=== PATIENT | female | born 1950 | race Caucasian/White ===

== ENCOUNTER 2019-04-02 10:36 | Inpatient (IN) | payer MEDICARE, OTHER ==
[2019-04-02] MEDS ORDERED: Fentanyl 20 mcg/ml (100 ml CADD) IV PRN (10:53)
[2019-04-02] MEDS ORDERED: methylPREDNISolone Sod Succ/PF 125 MG/2 ML VIAL ONE (10:58)
[2019-04-02] MEDS ORDERED: Magnesium 2 GM/50 ML BAG (IN WATER) ONE (10:58)
--- NOTE | 2019-04-02 10:59 | RAD ---
XR Chest 1 View Portable History: Chest pain. Comparison: None. Findings: Patient is intubated with endotracheal tube tip above the yvette 4 cm. Lungs are hyperinfla robert. Scarring throughout the lungs. Calcified breast implants. Calcified granuloma right upper lobe. Enteric tube side port below the GE junction. Impression: 1. Satisfactory position of the endotracheal and enteric tubes. 2. Lung hyperinflation and scarring suggestive of obstructive pulmonary disease.
[2019-04-02 11:01] LABS: Actual Bicarbonate (HCO3a) 25.4 mEq/L (22-28); Analyzer IN Cardio ER; Base Excess (BEa) -1.8 mEq/L (-2.0 to +3.0); CO2 Tension 52.6 mmHg (35.0-45.0); Calcium, Ionized 1.16 mmol/L (1.12-1.30); Carboxyhemoglobin (COHb) 1.1 gm% (0.0-3.0); Hemoglobin (Hb) 14.9 g/dL (12.0-16.0); O2 Tension (PaO2) 288.8 mmHg (> 80.0); Potassium - ABG Lab 3.53 mmol/L (3.70-5.30)
[2019-04-02 11:03] LABS: Puncture Site RRA
[2019-04-02] MEDS ORDERED: ISOVUE-370 76%-LOCM 1 ML ONE (11:09)
[2019-04-02 11:17] LABS: #Basophils 0.1 thou/uL (0.0-0.2); #Eosinphils 0.2 thou/uL (0.0-0.7); #Monocytes 0.6 thou/uL (0.11-0.59); #Neutrophils 3.7 thou/uL (1.40-6.50); %Basophils 1.2 % (0.0-1.0); %Eosinophils 2.9 % (0.0-10.0); %Lymphocytes 30.2 % (21.0-51.0); %Monocytes 9.6 % (0.0-10.0); %Neutrophils 56.1 % (42.0-75.0); Hemoglobin 14.3 g/dL (12.0-16.0); Mean Corpuscular HGB CONC 32.5 g/dL (32.0-36.0); Mean Corpuscular Hemoglobin 33.7 pg (27.0-31.0); Mean Platelet Volume 7.1 fL (7.4-10.4); Platelet Count 450 thou/uL (130-400); RBC Distribution Width 11.5 % (11.5-14.5); Red Blood Cell (RBC) Count 4.23 mill/uL (4.20-5.40); White Blood Cell (WBC) Count 6.5 thou/uL (4.8-10.8)
[2019-04-02 11:33] LABS: ALT (SGPT) 11 U/L (8-55); AST (SGOT) 16 U/L (5-34); Albumin 3.6 g/dL (3.4-4.8); Alkaline Phosphatase 92 U/L (40-150); Anion Gap 12 mmol/L (10-20); BUN (Urea Nitrogen) 9 mg/dL (9.8-20.1); Bilirubin, Total 0.3 mg/dL (0.2-1.2); Calc. Creatinine Clearance 0 mL/min (70-130); Calcium 9.1 mg/dL (7.8-10.44); Carbon Dioxide 24 mmol/L (23-31); Chloride 108 mmol/L (98-107); Estimated GFR-MDRD 60; Globulin 2.5 g/dL (2.4-3.5); Glucose 223 mg/dL (80-115); Potassium 3.7 mmol/L (3.5-5.1); Protein, Total 6.1 g/dL (6.0-8.3); Sodium 140 mmol/L (136-145)
[2019-04-02 11:49] LABS: Bacteria/HPF None Seen HPF (None Seen); Bilirubin Negative (Negative); Blood, Urine Negative (Negative); Clarity Turbid (Clear); Glucose, Urine (Dipstick) 30 mg/dL (Negative); Leukocyte Negative Leu/uL (Negative); Nitrite Negative (Negative); Protein, Urine (Dipstick) 70 mg/dL (Neg-Trace); RBC/HPF 0-3 HPF (0-3); Squamous Epithelial 0-3 HPF (0-3); Urobilinogen Normal mg/dL (Less than 2)
--- NOTE | 2019-04-02 11:57 | CT ---
CTA Angio Chest W WO Con History: Respiratory distress Comparison: Radiograph same day Findings: CT angiogram chest performed after the intravenous administration of contrast. 3-D renderin g provided. No proximal segmental pulmonary arterial filling defect. Pulmonary trunk size is normal. No pericardi al effusion. There is contrast within the renal collecting systems. Aortic size is nonaneurysmal. Dense calcifications along the breast implants bilaterally with likely left adnexa fracture rupture. Endotracheal tube tip is above the yvette. Enteric tube tip is in the gastric body. Severe emphysema. Scarring both lung apices. Calcified granuloma at superior segment right lower lobe . No pneumothorax. Chronic bronchial wall thickening. No airspace consolidation. No pneumothorax or effusion. Nonunion right posterior sixth, seventh, and eighth rib fractures. No thoracic spine compression defo rmity. Impression: 1. No proximal segmental pulmonary arterial filling defect. 2. Satisfactory location of the endotracheal and enteric tubes. 3. Severe pulmonary emphysema. 4. Nonunion right posterior sixth, seventh, and eighth rib fractures. 5. No evidence for pneumonia.
[2019-04-02 12:09] LABS: CKMB 5.5 ng/mL (0-6.6)
[2019-04-02] MEDS ORDERED: Acetaminophen 650 MG Suppository PR PRN (13:00)
--- NOTE | 2019-04-02 13:20 | PDOC.FPRHP ---
Addendum entered and electronically signed by Bernie Oneil MD 04/02/19 16:08 : VS: HR 76 bpm, RR 20 resp/min, BP 106/52, 95%O2 PE: Gen: NAD, intubated, sedated. Neuro: Responds to command. GCS 7T (E1V5M6) Heart: RRR, no murmurs or gallups Resp: Breath sounds present bilaterally, no wheezing, good respiratory effort Abd: Soft, nondistended, nontender Extremities/Skin: Purpura on back of hands, skin tears, no edema A/P: #Acute hypercapneic respiratory failure 2/2 COPD exacerbation -s/p ketamine & rocuronium & intubation -continue fentanyl, propofol for sedation due to agitation -pulmonary consulted, recs apprecatied -s/p magnesium. continue steroids, MANUEL duonebs, cefepime for abx coverage -apparently in ER patient writing to nurses that she wants to be extubated and stop all meds, however she received ketamine. Unethical to extubate at this time since possibility of decompensation and tatiana. since she could be having ketamine induced delirium/psychosis. Keep intubated with propofol for sedation to help with agitation -Once extubated, consider palliative care to discuss ADA #acute COPD exacerbation -no developing infiltrate suggestive of PNA on imaging, no WBC, neg procal, however cover with abx pending blood cx #Indeterminate troponins -.064, EKG with LBBB; no T wave inv/ST elevations however no prior EKG to compare -Likely demand however continue to trend #Skin excoriations/wounds -wound care #HTN -On home lisinopril, however need to med rec -PRNs for now #Hypothyroidism -Check TSH, not regularly followed by PCP #Hep C -Normal LFTs -Check HIV/RPR #Tobacco abuse -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 She was intubated at the time of evaluation, so the entirety of the HPI / ROS was obtained from the nursing staff and EMS. The patient apparently was experiencing SOB earlier this morning when she called EMS. Following EMS arrival, the patient initially refused treatment but was eventually convinced to try a trial of CPAP after the administration of IM/IV ketamine. The patient's RR and O2SATs continued to decline, and the decision was made to intubate the patient prior to transport. In the ED, the patient received methylprednisolone, magnesium and fentanyl and was placed on a respirator. A CXR, CTA, UA, and ABG were performed along with a CBC, CMP, Troponin and BNP. ED Course: While in the ED, the patient began communicating with nursing staff via handwritten notes that she wanted to be extubated and have all medication withheld. Due to obvious ethical concerns, the patient was informed that she was to remain intubated until she could be transferred to the ICU and her mental status could be assessed further. - Allergies/Adverse Reactions Allergies Allergy/AdvReac Type Severity Reaction Status Date / Time No Known Allergies Allergy Unverified 04/02/19 10:53 - History PMHx: COPD, Hepatitis C, HTN PSHx: Unknown FHx: Unknown Social: Tobacco Abuse, Drug / EtOH Abuse Unknown - Review of Systems ROS unobtainable: due to endotracheal tube - Vital signs BP: [156/92] HR: [88] RR: [20] Tmax: [-] Pox: [100]% on [Volume Support] Wt: [ 20 kg] - Physical Exam Constitutional: other -Constitutional: Intubated and moderately combative with hospital staff HEENT: normocephalic and atraumatic, PERRLA, EOMI, conjunctiva clear, no scleral icterus, grossly normal vision, grossly normal hearing, normal nasal mucosa Neck: supple, FROM, trachea midline, no LAD Chest: no-tender to palpation, no lesions Heart: RRR, normal S1/S2, no murmurs/rubs/gallops, pulses present, no edema Lungs: CTAB, no wheezing, other (Poor air movement) Abdomen: soft, non-tender, no masses/distention Musculoskeletal: normal structure, normal tone, ROM grossly normal Neurological: no focal deficit, CN II-XII intact Skin: good turgor, other (Multiple skin breaks, petechia and ecchymoses on all 4 extremities) Heme/Lymphatic: other (See Skin) Psychiatric: other (Difficult to adequately assess due to current medication regimen and desire to be extubated) FMR H&P: Results - Labs Result Diagrams: 04/02/19 15:32 04/02/19 15:33 Lab results: WBC 6.5 thou/uL (4.8-10.8) 04/02/19 10:50 Hgb 14.3 g/dL (12.0-16.0) 04/02/19 10:50 Hct 43.9 % (36.0-47.0) 04/02/19 10:50 MCV 104.0 fL (78.0-98.0) H 04/02/19 10:50 Plt Count 450 thou/uL (130-400) H 04/02/19 10:50 Neutrophils % 56.1 % (42.0-75.0) 04/02/19 10:50 ABG pH 7.30 (7.35-7.45) L 04/02/19 10:56 ABG pCO2 52.6 mmHg (35.0-45.0) H 04/02/19 10:56 ABG pO2 288.8 mmHg (> 80.0) H 04/02/19 10:56 Sodium 140 mmol/L (136-145) 04/02/19 10:50 Potassium 3.7 mmol/L (3.5-5.1) 04/02/19 10:50 Chloride 108 mmol/L (98-107) H 04/02/19 10:50 Carbon Dioxide 24 mmol/L (23-31) 04/02/19 10:50 BUN 9 mg/dL (9.8-20.1) L 04/02/19 10:50 Creatinine 0.93 mg/dL (0.6-1.1) 04/02/19 10:50 Glucose 223 mg/dL (80-115) H 04/02/19 10:50 Lactic Acid 1.7 mmol/L (0.5-2.2) 04/02/19 10:50 Calcium 9.1 mg/dL (7.8-10.44) 04/02/19 10:50 Total Bilirubin 0.3 mg/dL (0.2-1.2) 04/02/19 10:50 AST 16 U/L (5-34) 04/02/19 10:50 ALT 11 U/L (8-55) 04/02/19 10:50 Alkaline Phosphatase 92 U/L (40-150) 04/02/19 10:50 CK-MB (CK-2) 5.5 ng/mL (0-6.6) 04/02/19 10:50 B-Natriuretic Peptide 115.6 pg/mL (0-100) H 04/02/19 10:50 Serum Total Protein 6.1 g/dL (6.0-8.3) 04/02/19 10:50 Albumin 3.6 g/dL (3.4-4.8) 04/02/19 10:50 Urine Ketones Negative mg/dL (Negative) 04/02/19 11:20 Urine Blood Negative (Negative) 04/02/19 11:20 Urine Nitrite Negative (Negative) 04/02/19 11:20 Ur Leukocyte Esterase Negative Inez/uL (Negative) 04/02/19 11:20 Urine RBC 0-3 HPF (0-3) 04/02/19 11:20 Urine WBC 7-10 HPF (0-3) A 04/02/19 11:20 Ur Squamous Epith Cells 0-3 HPF (0-3) 04/02/19 11:20 Urine Bacteria None Seen HPF (None Seen) 04/02/19 11:20 - EKG Interpretation EKG: RBBB - Radiology Interpretation Chest x-ray Status: image reviewed by me (NAF) CT scan - chest Status: image reviewed by me, report reviewed by me (Severe Pulmonary Emphysema) FMR H&P: A/P - Problem List (1) Acute hypercapnic respiratory failure Current Visit: Yes Status: Acute Code(s): J96.02 - ACUTE RESPIRATORY FAILURE WITH HYPERCAPNIA (2) COPD exacerbation Current Visit: Yes Status: Acute Code(s): J44.1 - CHRONIC OBSTRUCTIVE PULMONARY DISEASE W (ACUTE) EXACERBATION (3) HTN (hypertension) Current Visit: Yes Status: Acute Code(s): I10 - ESSENTIAL (PRIMARY) HYPERTENSION (4) Hepatitis C Current Visit: Yes Status: Acute Code(s): B19.20 - UNSPECIFIED VIRAL HEPATITIS C WITHOUT HEPATIC COMA (5) Tobacco abuse Current Visit: Yes Status: Acute Code(s): Z72.0 - TOBACCO USE - Plan 1. Acute Hypercapnic Respiratory Failure, likely 2/2 to COPD Exacerbation -Respiratory distress first witnessed by EMS, intubated following failed treatment of CPAP -IM ketamine administered in field by EMS -Placed on ventilator in ED - Volume Control -Rate: 20 -% Minute Volume: 7.5 -Inspired O2: 55 -Tidal Volume: 390 -Peak Pressure: 23 -Pressure Support: 10 -PEEP: 5 -CTA: Severe Pulmonary Emphysema -CXR: NAF -UA: +++WBCs, ++Amorphous Crystals, Hyaline Casts -Procalcitonin: 0.04 -Troponin: 0.064 (I) -BNP: 115 -UDS: Negative -Acute intoxication and/or infection appear unlikely -Patient expressed a desire to be extubated and have all medications withheld while in the ED -Mental status cannot be adequately assessed due to prior administration of IM ketamine -Patient unlikely to support respiratory needs unassisted -Dr. Velarde (Pulmonology) consulted - continued ventilator support recommended -Methylprednisolone 50 mg IV Q4H, Ipratropium/Albuterol 3 ml Neb Q4H -Transfer to ICU for close monitoring and ventilator support -Coordinate with Pulmonology in order to reassess mental status and establish plan of care 2. COPD Exacerbation -See #1 3. HTN -Most recent BP was 156/92 -Acceptable given comorbidities and unclear mental state 4. Hepatitis C -Etiology of infection and treatment status unknown -Withhold testing and intervention until mental status is reassessed and plan of care can be established with patient 5. Tobacco Abuse -Likely chronic -Encourage tobacco cessation if plan of care can be established with patient Code: Full Diet: NPO Activity: Strict Bed Rest DVT Prophylaxis: SCDs and Enoxaparin 40 mg SC Dispo: Admit to ICU and coordinate closely with Pulmonology for further evaluation and trial extubation. Alter plan as desired once mental status can be fully assessed and patient's wishes can be honored. FMR H&P: Upper Level - Pertinent history 68 yo F with severe emphysema brought in by EMS after picked up for severe dyspnea. Was found to be in tripod position and agitated. CPAP initially started in which she did not tolerate and so was given ketamine and rocuronium and intubated on the field. In the ER she was transitioned to fentanyl for pain/ sedation and was stabilized. Limited history is known since this is patient's first hospitalization and no family member present. - Plan Date/Time: 04/02/19 1320 I, [Bernie Oneil], have evaluated this patient and agree with findings/plan as outlined by project management intern resident. Pertinent changes/additions are listed here. Addendum - Attending - Attending Attestation Date/Time: 04/02/19 0964 I personally evaluated the patient and discussed the management with Dr. Gonsalez /Thad. I agree with the History, Examination, Assessment and Plan documented above with any addition or exceptions noted below. Patient is 68-year-old female with overall unknown medical history presenting to the emergency department via EMS. History obtained from nursing staff as well as EMS records. In brief, patient apparently called EMS due to increased shortness of breath. She was initially tried on CPAP therapy but quickly failed that and had to be intubated in the field. She was transferred here for higher level of care. Other historical information is unknown. Per EMS records, patient received ketamine by EMS and was transitioned to [facility] on arrival here. After arrival, she was somewhat awake and began writing notes asking to stop all medications as well as removing the endotracheal tube. Patients exam is pertinent for an elderly appearing lady in no apparent distress but currently on a ventilator for respiratory support. Her lung exam shows scattered wheezes and decreased air entry bilaterally. The rest of her exam was overall benign. Labs only showed a mild thrombocytosis and hyperglycemia. Chest x-ray was clear and chest CTA showed no pulmonary embolism but changes consistent with severe emphysema. Pulmonology was quickly consulted who assisted in evaluation of the patient. Due to the patients ventilator requirement, her arterial blood gas readings while on the ventilator, and the fact she had been given multiple medications that can result in changes in mental status, the decision was made that the patient was currently not capable of making the decision to withdraw care. During this evaluation, I was able to obtain the patients PCP name, who was contacted for further information. The patients physician reported that she had only seen her one time, in June 2018, and that she had no information regarding advance directives on the patient. She did have an emergency contact in her medical records and that number was contacted here today and was found to be disconnected number. After pulmonologys evaluation, patient was agreeable to remaining on the ventilator as it was described to her that her currently being off respiratory support was not compatible with long-term survival. The patient will be admitted to the CCU for respiratory support for acute hypoxic respiratory failure secondary to likely COPD exacerbation. Based on her PCPs records, the patient also has hypertension, hypothyroidism, chronic hepatitis C, in those conditions will be continued to be managed while in the hospital. Once patient is off the ventilator, we will be able to fully assess her future wishes and goals of care. Guillermo Moore MD
[2019-04-02] MEDS ORDERED: Lactated Ringer's 1,000 ML IV SCH (13:30)
[2019-04-02] MEDS ORDERED: Enoxaparin Sodium 40 MG/0.4 ML SYRINGE SC SCH (13:30)
[2019-04-02] MEDS ORDERED: Propofol 1,000 MG/100 ML VIAL IV ONE (14:36)
[2019-04-02] MEDS ORDERED: Ventilator Sedation Protocol 1 EACH FS SCH (14:45)
[2019-04-02] MEDS ORDERED: fentaNYL Citrate/PF 2,000 MCG in Sodium Chloride 0.9% 60 ML IV SCH (14:47)
[2019-04-02] MEDS ORDERED: Morphine 2 MG/ML SYRINGE SLOW IVP PRN (14:47)
[2019-04-02] MEDS ORDERED: Propofol 1,000 MG/100 ML VIAL IV PRN (14:47)
[2019-04-02] MEDS ORDERED: DISCONTINUE PREVIOUS NARCOTIC PAIN MEDICATIONS AND BENZODIAZEPINES FS SCH (14:47)
[2019-04-02] MEDS ORDERED: Propofol BOLUS 1,000 MG/100 ML VIAL IV PRN (14:47)
[2019-04-02] MEDS ORDERED: Fentanyl BOLUS 250 ML IVPB PRN (14:47)
[2019-04-02 14:53] VITALS: BMI 19.5
[2019-04-02 14:53] LABS: Amphetamine Not Detected (NotDetected); Barbiturates Screen Not Detected (NotDetected); Benzodiazepine Screen Not Detected (NotDetected); Cocaine Metabolite Screen Not Detected (NotDetected); Medtox Control Line Valid? VALID (VALID); Medtox Reader # READER 4; Methadone Not Detected (NotDetected); Methamphetamine Not Detected (NotDetected); Opiate Screen Not Detected (NotDetected); Oxycodone Screen Not Detected (NotDetected); Phencyclidine (PCP) Not Detected (NotDetected); THC/Cannabinoid Screen Not Detected (NotDetected); Tricyclic Screen Not Detected (NotDetected)
[2019-04-02] MEDS: Sodium Chloride 0.9% 1,000 ML IV SCH ×2 (15:24→18:23)
[2019-04-02] MEDS: Lorazepam 2 MG/ML VIAL SLOW IVP PRN ×2 (15:27→23:08)
[2019-04-02] MEDS: Cefepime 1 GM in Sodium Chloride 0.9% 100 ML IVPB SCH (15:28)
[2019-04-02 15:42] LABS: Hemoglobin 13.4 g/dL (12.0-16.0); Mean Corpuscular HGB CONC 32.9 g/dL (32.0-36.0); Mean Corpuscular Hemoglobin 33.7 pg (27.0-31.0); RBC Distribution Width 11.4 % (11.5-14.5); Red Blood Cell (RBC) Count 3.97 mill/uL (4.20-5.40); White Blood Cell (WBC) Count 14.4 thou/uL (4.8-10.8)
[2019-04-02 15:54] LABS: Band 14 % (5-11); Lymphocytes 4 % (21-51); MDiff Complete? YES; Macrocytosis SLIGHT = 6-15 cells (100X) (0-5/hpf); Monocytes 1 % (0-10); Neutrophil 81 % (42-75); Platelet Count 290 thou/uL (130-400); Platelet Morphology Comment Appears Adequate
[2019-04-02 16:07] LABS: Troponin I 0.712 ng/mL (< 0.028)
[2019-04-02 16:22] LABS: ALT (SGPT) 10 U/L (8-55); AST (SGOT) 21 U/L (5-34); Albumin 3.2 g/dL (3.4-4.8); Alkaline Phosphatase 82 U/L (40-150); Anion Gap 18 mmol/L (10-20); BUN (Urea Nitrogen) 9 mg/dL (9.8-20.1); Bilirubin, Total 0.3 mg/dL (0.2-1.2); Calc. Creatinine Clearance 47 mL/min (70-130); Calcium 8.9 mg/dL (7.8-10.44); Carbon Dioxide 16 mmol/L (23-31); Chloride 109 mmol/L (98-107); Estimated GFR-MDRD 60; Globulin 2.5 g/dL (2.4-3.5); Glucose 218 mg/dL (80-115); Potassium 4.6 mmol/L (3.5-5.1); Protein, Total 5.7 g/dL (6.0-8.3); Sodium 138 mmol/L (136-145)
[2019-04-02] MEDS ORDERED: Sodium Chloride 0.9% 500 ML IV SCH (16:30)
[2019-04-02] MEDS: methylPREDNISolone Sod Succ/PF 125 MG/2 ML VIAL IVP SCH (17:01)
[2019-04-02 17:49] LABS: HIV (1/2) Antibody/Antigen Non-Reactive (NonReactive); HIV 1/2 INDEX 0.07 S/CO (<1.00); Syphilis Antibody Nonreactive (Nonreactive); Syphilis Antibody Index 0.05 S/CO (<1.00 Non-Reactive); Thyroid Stimulating Hormone 0.1197 uIU/mL (0.35-4.94)
[2019-04-02 18:55] LABS: Troponin I 1.386 ng/mL (< 0.028)
[2019-04-02] MEDS: Famotidine/PF 20 mg/2ml Vial SLOW IVP SCH (21:29)
[2019-04-02 22:22] LABS: CKMB 12.7 ng/mL (0-6.6)
[2019-04-02] MEDS ORDERED: Enoxaparin Sodium 60 MG/0.6 ML SYRINGE SC SCH (22:45)
[2019-04-03] MEDS: methylPREDNISolone Sod Succ/PF 125 MG/2 ML VIAL IVP SCH ×4 (00:34→17:15)
[2019-04-03 01:46] LABS: Critical Call Chem Troponin I RESULT DECREASING
[2019-04-03 02:13] LABS: CKMB 14.4 ng/mL (0-6.6)
[2019-04-03] MEDS: Sodium Chloride 0.9% 1,000 ML IV SCH ×2 (04:16→15:20)
[2019-04-03] MEDS: Cefepime 1 GM in Sodium Chloride 0.9% 100 ML IVPB SCH (04:16)
[2019-04-03 06:29] LABS: #Lymphocytes 0.9 thou/uL (1.20-3.40); #Monocytes 0.4 thou/uL (0.11-0.59); #Neutrophils 9.5 thou/uL (1.40-6.50); %Lymphocytes 8.3 % (21.0-51.0); %Monocytes 3.2 % (0.0-10.0); %Neutrophils 88.4 % (42.0-75.0); Hemoglobin 12.7 g/dL (12.0-16.0); Mean Platelet Volume 7.4 fL (7.4-10.4); Platelet Count 364 thou/uL (130-400); RBC Distribution Width 11.6 % (11.5-14.5); Red Blood Cell (RBC) Count 3.74 mill/uL (4.20-5.40); White Blood Cell (WBC) Count 10.7 thou/uL (4.8-10.8)
[2019-04-03 06:50] LABS: Anion Gap 11 mmol/L (10-20); BUN (Urea Nitrogen) 11 mg/dL (9.8-20.1); Calc. Creatinine Clearance 59 mL/min (70-130); Calcium 8.6 mg/dL (7.8-10.44); Carbon Dioxide 20 mmol/L (23-31); Chloride 112 mmol/L (98-107); Estimated GFR-MDRD 79; Glucose 170 mg/dL (80-115); Potassium 3.9 mmol/L (3.5-5.1); Sodium 139 mmol/L (136-145)
[2019-04-03 07:01] LABS: Critical Call Chem Troponin I RESULT DECREASING
[2019-04-03 07:19] LABS: CKMB 13.2 ng/mL (0-6.6); Critical Call CKMB RESULT DECREASING
[2019-04-03] MEDS: Famotidine/PF 20 mg/2ml Vial SLOW IVP SCH ×2 (07:30→20:49)
[2019-04-03] MEDS: Enoxaparin Sodium 60 MG/0.6 ML SYRINGE SC SCH ×2 (07:30→20:48)
--- NOTE | 2019-04-03 07:34 | PDOC.FM ---
- Subjective Subjective: Elevated troponins, started on therapeutic lovenox. NAEO otherwise - Objective Vital Signs & Weight: Vital Signs (12 hours) Temp Pulse Resp BP 04/03/19 07:24 89 04/03/19 06:00 20 04/03/19 04:00 98.4 F 04/03/19 02:26 68 105/69 04/03/19 02:00 20 04/03/19 00:00 98.0 F 04/02/19 22:33 61 82/57 L 04/02/19 22:00 20 04/02/19 20:00 20 Weight Weight 50.2 kg Most Recent Monitor Data Heart Rate from ECG 80 NIBP 115/72 NIBP BP-Mean 86 Respiration from ECG 20 SpO2 99 I&O: 04/02/19 04/03/19 04/04/19 06:59 06:59 06:59 Intake Total 2745.5 Output Total 570 Balance 2175.5 Result Diagrams: 04/03/19 06:08 04/03/19 06:08 Phys Exam - Physical Examination Constitutional: NAD intubated/sedated HEENT: moist MMs Respiratory: no wheezing, clear to auscultation bilateral Cardiovascular: RRR, no significant murmur Gastrointestinal: soft, non-tender Musculoskeletal: no edema, pulses present Neurological: non-focal, moves all 4 limbs Dx/Plan (1) NSTEMI (non-ST elevated myocardial infarction) Code(s): I21.4 - NON-ST ELEVATION (NSTEMI) MYOCARDIAL INFARCTION Status: Acute (2) Acute hypercapnic respiratory failure Code(s): J96.02 - ACUTE RESPIRATORY FAILURE WITH HYPERCAPNIA Status: Acute (3) COPD exacerbation Code(s): J44.1 - CHRONIC OBSTRUCTIVE PULMONARY DISEASE W (ACUTE) EXACERBATION Status: Acute (4) HTN (hypertension) Code(s): I10 - ESSENTIAL (PRIMARY) HYPERTENSION Status: Acute (5) Hepatitis C Code(s): B19.20 - UNSPECIFIED VIRAL HEPATITIS C WITHOUT HEPATIC COMA Status: Acute (6) Tobacco abuse Code(s): Z72.0 - TOBACCO USE Status: Acute - Plan Plan: 68 yo F with severe COPD, NSTEMI here for acute hypercapenic resp failure #Acute hypercapneic respiratory failure 2/2 COPD exacerbation -continue fentanyl, propofol for sedation due to agitation -s/p magnesium. continue steroids, MANUEL duonebs, cefepime for abx coverage -anticipated extubation today, pending clinical course & pulm recs-much appreciated #acute COPD exacerbation -no developing infiltrate suggestive of PNA on imaging, no WBC, neg procal -CXR this AM with no infiltrate -d/c abx #NSTEMI -likely demand in light of downtrending trops -EKG with LBBB; no T wave inv/ST elevations however no prior EKG to compare -prior EKG and NST in 2006 WNL -trop downtrending -th. 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 lovenox gi ppx: pepcid Will discuss with Dr. Salgado Addendum - Attending - Attending Attestation Date/Time: 04/03/19 3299 I personally evaluated the patient and discussed the management with Dr. Oneil. I agree with the History, Examination, Assessment and Plan documented above with any addition or exceptions noted below.
[2019-04-03 07:38] LABS: Actual Bicarbonate (HCO3a) 18.9 mEq/L (22-28); Base Excess (BEa) -5.6 mEq/L (-2.0 to +3.0); CO2 Tension 33.8 mmHg (35.0-45.0); Calcium, Ionized 1.21 mmol/L (1.12-1.30); Carboxyhemoglobin (COHb) 0.9 gm% (0.0-3.0); Hemoglobin (Hb) 12.6 g/dL (12.0-16.0); Potassium - ABG Lab 3.84 mmol/L (3.70-5.30); pH, Arterial 7.37 (7.35-7.45)
[2019-04-03 07:43] LABS: Puncture Site RRA
--- NOTE | 2019-04-03 08:16 | CON ---
DATE OF CONSULTATION: HISTORY OF PRESENT ILLNESS: Gail Maldonado is a 68-year-old female, who has seen Dr. Michael in our office, presented with marked respiratory distress requiring intubation in the field. She was in the ER for a period of time, several hours, with associated ongoing respiratory distress. She became lucid enough and said she wanted to have endotracheal tube removed and wanted to be made a DNR. At about 3 o'clock, we talked to the patient that if she took the tube out, she would probably proceed to . She says she that is what she wanted. I finally convinced her that she was going to get better if we treated her for 24 to 48 hours. She has received, I am told in the ER, ketamine, one dose of rocuronium and apparently Fentanyl, at least at the time of my arrival, she is any medication. PAST MEDICAL HISTORY: COPD, hepatitis C, hypertension. SOCIAL HISTORY: She is still smoking. PAST SURGICAL HISTORY: Previous surgeries otherwise unknown. MEDICATIONS: Home medicine at this stage difficult to assess. REVIEW OF SYSTEMS: Otherwise, she was appropriate when I told her we would transfer her to the ICU and keep her sedated overnight. PHYSICAL EXAMINATION: GENERAL: In the ICU, sedated on Diprivan. VITAL SIGNS: Pulse 76, blood pressure 106/52, respiratory rate 18. CHEST: Decreased breath sounds. Prolonged expiration. No wheezing. CARDIAC: Sinus tach. ABDOMEN: Soft. LABORATORY DATA: White count 14,000, H and H 13 and 40, platelet count is normal. Lytes are normal. PO2 is 288, pC02 52, pH 7.3 on a 390 tidal volume, pressure about 10, PEEP of 5. Lytes were normal. Glucose slightly elevated. BNP was normal. Chest x-ray, no acute infiltrates. Drug screen was negative. CT chest angio shows no PE, evidence of no infiltrates. IMPRESSION: Chronic obstructive pulmonary disease exacerbation, bronchitis, major anxiety, apparently hepatitis. PLAN: Antibiotics, neb treatments, steroids initiated. IV fluid hydration. We will notify Dr. Michael in the morning. This is a 45-minute critical care time. Job ID: [id number]
--- NOTE | 2019-04-03 08:51 | RAD ---
PORTABLE CHEST: Date: 04/03/19 HISTORY: CCU follow-up. On ventilator. COMPARISON: 04/02/19. FINDINGS: ET tube and NG tube unchanged. Lungs appear clear of infiltrate. Vascular markings normal. Heart size normal. IMPRESSION: No acute findings. No interval change. POS: OFF
--- NOTE | 2019-04-03 18:08 | EKG ---
Test Reason : Blood Pressure : / mmHG Vent. Rate : 076 BPM Atrial Rate : 076 BPM P-R Int : 142 ms QRS Dur : 124 ms QT Int : 476 ms P-R-T Axes : 088 006 202 degrees QTc Int : 535 ms Normal sinus rhythm Septal infarct , age undetermined T wave abnormality, consider inferolateral ischemia lbbb pattern Abnormal ECG No previous ECGs available Confirmed by DR. Tamiko CHAPARRO (3) on 04/03/2019 6:07:32 PM Referred By: LACEY Confirmed By:DR. Tamiko CHAPARRO
--- NOTE | 2019-04-03 18:08 | EKG ---
Test Reason : STAT Blood Pressure : / mmHG Vent. Rate : 088 BPM Atrial Rate : 088 BPM P-R Int : 136 ms QRS Dur : 114 ms QT Int : 458 ms P-R-T Axes : 079 -38 232 degrees QTc Int : 554 ms Normal sinus rhythm Left axis deviation Septal infarct (cited on or before 02-APR-2019) T wave abnormality, consider inferior ischemia T wave abnormality, consider anterolateral ischemia Prolonged QT Abnormal ECG When compared with ECG of 02-APR-2019 16:51, (Unconfirmed) QRS axis Shifted left T wave inversion more evident in Anterior leads Confirmed by DR. Tamiko CHAPARRO (3) on 04/03/2019 6:07:59 PM Referred By: Confirmed By:DR. Tamiko CHAPARRO
--- NOTE | 2019-04-03 18:28 | PRG ---
DATE OF SERVICE: 04/03/2019 SUBJECTIVE: Gail Maldonado remains mechanically ventilated this morning. She is placed on Precedex. A spontaneous breathing trial was initiated. My feeling this morning was that if she did well with spontaneous breathing trial, we would extubate her. Her expiratory time was very short and I felt confident that she would eventually extubate later in the morning. She has been extubated. OBJECTIVE: LUNGS: Clear this morning. HEART: Regular rhythm. ABDOMEN: Soft. VITAL SIGNS: Stable overnight. LABORATORY DATA: White count 10.7, hemoglobin 12.7, platelets 364. Electrolytes; sodium 139, potassium 3.9, chloride 112, bicarb 20, BUN 11, and creatinine 0.74. IMPRESSION: Advanced chronic obstructive pulmonary disease with a brief overnight intubation after presenting with respiratory failure. Hopefully, we can move her out of the Critical Care Unit in the morning. CRITICAL CARE TIME: 30 minutes. Job ID: [id number]
[2019-04-04] MEDS: methylPREDNISolone Sod Succ/PF 125 MG/2 ML VIAL IVP SCH ×2 (00:20→06:16)
[2019-04-04] MEDS: hydrALAZINE 20 MG/ML VIAL SLOW IVP PRN ×2 (01:29→23:13)
[2019-04-04] MEDS: Sodium Chloride 0.9% 1,000 ML IV SCH ×3 (01:30→21:54)
[2019-04-04] MEDS ORDERED: Mometasone/Formoterol 120 PUFF INHALER INH SCH (07:15)
[2019-04-04] MEDS: ALPRAZolam 0.25 MG TAB PO PRN ×4 (07:38→20:59)
--- NOTE | 2019-04-04 07:56 | PDOC.FM ---
- Subjective Subjective: patient very anxious, refusing AM labs. breathing treatments make anxious, wants medication breathing difficult, coughing - Objective MAR Reviewed: Yes Vital Signs & Weight: Vital Signs (12 hours) Temp Pulse Resp BP Pulse Ox 04/04/19 07:40 97 26 H 100 04/04/19 03:00 98.3 F 04/04/19 02:30 72 22 H 97 04/04/19 01:29 56 L 190/81 H 04/04/19 00:00 97.7 F 100 04/03/19 22:31 52 L 20 99 04/03/19 20:00 98.6 F 98 Weight Admit Weight 50.2 kg Weight 50.2 kg Most Recent Monitor Data Heart Rate from ECG 60 NIBP 149/69 NIBP BP-Mean 95 Respiration from ECG 23 SpO2 95 I&O: 04/03/19 04/04/19 04/05/19 06:59 06:59 06:59 Intake Total 2745.5 2501.4 Output Total 570 600 Balance 2175.5 1901.4 Result Diagrams: 04/03/19 06:08 04/03/19 06:08 Phys Exam - Physical Examination Constitutional: NAD dry mucosal membranes Neck: full ROM Respiratory: no wheezing, no rales, no rhonchi dec breath sounds Cardiovascular: RRR, no significant murmur Gastrointestinal: soft, non-tender Musculoskeletal: no edema Neurological: non-focal, moves all 4 limbs Deviation from normal: anxious affect Dx/Plan (1) NSTEMI (non-ST elevated myocardial infarction) Code(s): I21.4 - NON-ST ELEVATION (NSTEMI) MYOCARDIAL INFARCTION Status: Acute (2) Acute hypercapnic respiratory failure Code(s): J96.02 - ACUTE RESPIRATORY FAILURE WITH HYPERCAPNIA Status: Acute (3) COPD exacerbation Code(s): J44.1 - CHRONIC OBSTRUCTIVE PULMONARY DISEASE W (ACUTE) EXACERBATION Status: Acute (4) HTN (hypertension) Code(s): I10 - ESSENTIAL (PRIMARY) HYPERTENSION Status: Acute (5) Hepatitis C Code(s): B19.20 - UNSPECIFIED VIRAL HEPATITIS C WITHOUT HEPATIC COMA Status: Acute (6) Tobacco abuse Code(s): Z72.0 - TOBACCO USE Status: Acute (7) Anxiety Code(s): F41.9 - ANXIETY DISORDER, UNSPECIFIED Status: Acute - Plan Plan: 68 yo F with severe COPD, NSTEMI here for acute hypercapenic resp failure #Acute hypercapneic respiratory failure 2/2 COPD exacerbation/Anxiety -post extubation day 1, on 2-3L N.C., keep in ICU possible may decompensate and need re-intubation -starting dulera today, cont. MAUNEL duonebs & steroids -anxiety large component of respiratory issues -pulm on board, recs apprecaited -palliative care consulted to discuss ADA #acute COPD exacerbation -no developing infiltrate suggestive of PNA on imaging, no WBC, neg procal-abx not indicated -see above #NSTEMI, type 2 -likely demand in light of downtrending trops, no chest pain -EKG with LBBB; no T wave inv/ST elevations however no prior EKG to compare -prior EKG and NST in 2006 WNL -trop downtrending -th. lovenox, ASA -cards on board, recs appreciated #Anxiety -started on xanax QID since contributing to respiatory issues #Skin excoriations/wounds -wound care consulted #HTN -resume home lisinopril #Hypothyroidism -check tsh/ft4 #Hep C -Normal LFTs -HIV/RPR negative #Tobacco abuse -Manager Advanced cessation Dispo: >2 midnights PCP: Dr Levi Sheffield Lines: left AC, right AC, ETT dvt ppx: th. lovenox gi ppx: none Code: DNR Will discuss with Dr. Salgado Addendum - Attending - Attending Attestation Date/Time: 04/04/19 9558 I personally evaluated the patient and discussed the management with Dr. Oneil. I agree with the History, Examination, Assessment and Plan documented above with any addition or exceptions noted below. Will continue to treat anxiety as a trigger for COPD exacerbation.
[2019-04-04] MEDS ORDERED: Famotidine 20 MG TAB PO SCH (09:00)
[2019-04-04] MEDS: Loratadine 10 MG TAB PO SCH (09:08)
[2019-04-04] MEDS: Lisinopril 10 MG TAB PO SCH (09:08)
[2019-04-04] MEDS: Enoxaparin Sodium 40 MG/0.4 ML SYRINGE SC SCH (09:09)
[2019-04-04] MEDS: methylPREDNISolone Sod Succ 40 MG VIAL IVP SCH ×3 (12:07→23:24)
[2019-04-04 14:24] LABS: Anion Gap 13 mmol/L (10-20); BUN (Urea Nitrogen) 11 mg/dL (9.8-20.1); Calc. Creatinine Clearance 60 mL/min (70-130); Calcium 9.2 mg/dL (7.8-10.44); Carbon Dioxide 21 mmol/L (23-31); Chloride 110 mmol/L (98-107); Estimated GFR-MDRD 80; Glucose 112 mg/dL (80-115); Potassium 3.9 mmol/L (3.5-5.1); Sodium 140 mmol/L (136-145)
[2019-04-04 14:41] LABS: Band 5 % (5-11); Eosinophils 1 % (0-10); Hemoglobin 13.2 g/dL (12.0-16.0); Lymphocytes 2 % (21-51); MDiff Complete? YES; Mean Corpuscular HGB CONC 32.5 g/dL (32.0-36.0); Mean Corpuscular Hemoglobin 33.6 pg (27.0-31.0); Mean Platelet Volume 7.1 fL (7.4-10.4); Monocytes 2 % (0-10); Neutrophil 90 % (42-75); Platelet Count 427 thou/uL (130-400); Platelet Morphology Comment Appears Increased; RBC Distribution Width 11.7 % (11.5-14.5); Red Blood Cell (RBC) Count 3.94 mill/uL (4.20-5.40); White Blood Cell (WBC) Count 24.7 thou/uL (4.8-10.8)
[2019-04-04] MEDS: Acetaminophen 325 MG TAB PO PRN ×2 (15:14→20:59)
[2019-04-04 15:29] LABS: Hep C IgG Ab Reflex HepC Qnt (NonReactive); Hep C Index 11.63 S/CO (0-0.79)
[2019-04-04] MEDS ORDERED: niCARdipine 25 MG in Sodium Chloride 0.9% 250 ML 250 ML IVPB SCH (15:45)
[2019-04-04] MEDS: Mometasone/Formoterol 120 PUFF INHALER INH SCH (18:46)
[2019-04-05] MEDS: Diltiazem HCl 125 MG, Admixture Fee 1 EACH in Sodium Chloride 0.9% 100 ML IVPB SCH ×2 (00:21→08:48)
[2019-04-05] MEDS: ALPRAZolam 0.25 MG TAB PO PRN ×4 (02:44→19:52)
[2019-04-05] MEDS: Lorazepam 2 MG/ML VIAL SLOW IVP PRN ×3 (03:37→23:58)
[2019-04-05] MEDS: methylPREDNISolone Sod Succ 40 MG VIAL IVP SCH ×4 (05:41→23:54)
--- NOTE | 2019-04-05 07:05 | PDOC.FM ---
Addendum entered and electronically signed by Bernie Oneil MD 04/05/19 09:55 : Patient went in SVT overnight Started on cardizem drip Continue Original Note: - Subjective Subjective: NAEO. patient still anxious and agitated. - Objective Vital Signs & Weight: Vital Signs (12 hours) Temp Pulse Resp BP Pulse Ox 04/05/19 04:00 98.7 F 04/05/19 02:02 157 H 24 H 98 04/05/19 00:19 160 H 199/88 H 04/05/19 00:00 98.3 F 04/04/19 23:13 101 H 199/88 H 04/04/19 22:55 86 32 H 100 04/04/19 20:00 98.7 F 04/04/19 19:05 100 Weight Admit Weight 50.2 kg Weight 50.2 kg Most Recent Monitor Data Heart Rate from ECG 87 NIBP 175/89 NIBP BP-Mean 117 Respiration from ECG 24 SpO2 98 I&O: 04/04/19 04/05/19 04/06/19 06:59 06:59 06:59 Intake Total 2501.4 2402 Output Total 600 2903 Balance 1901.4 -501 Result Diagrams: 04/05/19 06:51 04/05/19 06:51 Dx/Plan (1) NSTEMI (non-ST elevated myocardial infarction) Code(s): I21.4 - NON-ST ELEVATION (NSTEMI) MYOCARDIAL INFARCTION Status: Acute (2) Acute hypercapnic respiratory failure Code(s): J96.02 - ACUTE RESPIRATORY FAILURE WITH HYPERCAPNIA Status: Acute (3) COPD exacerbation Code(s): J44.1 - CHRONIC OBSTRUCTIVE PULMONARY DISEASE W (ACUTE) EXACERBATION Status: Acute (4) HTN (hypertension) Code(s): I10 - ESSENTIAL (PRIMARY) HYPERTENSION Status: Acute (5) Hepatitis C Code(s): B19.20 - UNSPECIFIED VIRAL HEPATITIS C WITHOUT HEPATIC COMA Status: Acute (6) Tobacco abuse Code(s): Z72.0 - TOBACCO USE Status: Acute (7) Anxiety Code(s): F41.9 - ANXIETY DISORDER, UNSPECIFIED Status: Acute - Plan Plan: 68 yo F with severe COPD, NSTEMI here for acute hypercapenic resp failure #Acute hypercapneic respiratory failure 2/2 COPD exacerbation/Anxiety -post extubation day 1, on 2-3L N.C., keep in ICU possible may decompensate and need re-intubation -starting dulera today, cont. MANUEL duonebs & steroids -anxiety large component of respiratory issues, on xanax -pulm on board, recs appreciated -palliative care consulted to discuss ADA -can probably transfer to floor -oxygen qualifying trial #acute COPD exacerbation -no developing infiltrate suggestive of PNA on imaging, no WBC, neg procal-abx not indicated -see above #NSTEMI, type 2 -likely demand in light of downtrending trops, no chest pain -EKG with LBBB; no T wave inv/ST elevations however no prior EKG to compare -prior EKG and NST in 2006 WNL -trop downtrending -ASA -cards on board, recs appreciated #Anxiety -started on xanax QID since contributing to respiratory issues -discussed watermelon inspector SSRI, pt interested in discussing at later point #Skin excoriations/wounds -wound care consulted #HTN, uncontrolled -likely anxiety induced -will discuss inc in home lisinopril dose #Hypothyroidism -subclinical hypoT -resume home synthroid -monitor & adjust outpt #Hep C -Normal LFTs -HIV/RPR negative -pending hep C viral panel #Tobacco abuse -Student Loan Counselor cessation Dispo: >2 midnights PCP: Dr Levi Sheffield Lines: left AC, right AC dvt ppx: ppx lovenox gi ppx: home protonix Code: DNR Will discuss with Dr. Salgado Addendum - Attending - Attending Attestation Date/Time: 04/05/19 1201 I personally evaluated the patient and discussed the management with Dr. Oneil. I agree with the History, Examination, Assessment and Plan documented above with any addition or exceptions noted below. Gail is making slow improvement. I agree that anxiety is liely exascerbating hre known COPD. I think she would benefit from SSRI or other non benzodiazepine based medication in addition to the xanax, but she remains resistant to any therapy other than benzo class. We appreciate pulmonology care and expertise.
[2019-04-05 07:09] LABS: #Lymphocytes 1.1 thou/uL (1.20-3.40); #Monocytes 1.9 thou/uL (0.11-0.59); #Neutrophils 15.9 thou/uL (1.40-6.50); %Basophils 0.2 % (0.0-1.0); %Eosinophils 0.1 % (0.0-10.0); %Lymphocytes 5.7 % (21.0-51.0); %Monocytes 10.1 % (0.0-10.0); Hemoglobin 12.4 g/dL (12.0-16.0); Mean Corpuscular HGB CONC 32.8 g/dL (32.0-36.0); Mean Corpuscular Hemoglobin 33.4 pg (27.0-31.0); Mean Platelet Volume 7.1 fL (7.4-10.4); Platelet Count 396 thou/uL (130-400); RBC Distribution Width 11.7 % (11.5-14.5); Red Blood Cell (RBC) Count 3.72 mill/uL (4.20-5.40)
[2019-04-05] MEDS: Mometasone/Formoterol 120 PUFF INHALER INH SCH ×2 (07:17→18:26)
[2019-04-05 07:40] LABS: Anion Gap 11 mmol/L (10-20); BUN (Urea Nitrogen) 9 mg/dL (9.8-20.1); Calc. Creatinine Clearance 63 mL/min (70-130); Carbon Dioxide 23 mmol/L (23-31); Chloride 110 mmol/L (98-107); Cholesterol 225 mg/dl (< 200 Desired); Estimated GFR-MDRD 84; Glucose 104 mg/dL (80-115); HDL Cholesterol 75 mg/dL (>60 Neg Risk); LDL Cholesterol, Calculated 125 mg/dL; Potassium 3.3 mmol/L (3.5-5.1); Sodium 141 mmol/L (136-145); Triglycerides 126 mg/dL (Less than 150)
[2019-04-05] MEDS: Sodium Chloride 0.9% 1,000 ML IV SCH ×2 (08:07→19:49)
[2019-04-05] MEDS: Lisinopril 10 MG TAB PO SCH (08:08)
[2019-04-05] MEDS: Loratadine 10 MG TAB PO SCH (08:08)
[2019-04-05] MEDS ORDERED: guaiFENesin/Dextromethorphan 10 ML UDCUP PO PRN (08:16)
[2019-04-05] MEDS ORDERED: Magnesium 2 GM/50 ML 2 GM in Premix Bag 1 BAG IVPB SCH ×2 (08:30→09:15)
[2019-04-05] MEDS: Enoxaparin Sodium 40 MG/0.4 ML SYRINGE SC SCH (08:50)
--- NOTE | 2019-04-05 09:17 | PRG ---
DATE OF SERVICE: 04/05/2019 SUBJECTIVE: Gail Maldonado remains in the ICU, extremely anxious. Last night, she went into SVT, started on a Cardizem drip. OBJECTIVE: VITAL SIGNS: Pulse is 86, blood pressure 123/78, saturations are 98% on 2 L, and respirations 25. I's and O's have been consistently positive. CHEST: Decreased breath sounds. Prolonged expiration. CARDIAC: SVT. ABDOMEN: Soft. LABORATORY DATA: Potassium 3.3. Lytes are normal. White count 19,000, H and H of 10 and 37. ASSESSMENT: 1. End-stage chronic obstructive pulmonary disease exacerbation. 2. Do not resuscitate. 3. Supraventricular tachycardia. 4. Major anxiety. PLAN: Zee p.r.n. Continue Cardizem. Continue steroids, magnesium, antitussive medication. We will follow. One-half hour of critical care time. Job ID: [id number]
[2019-04-05] MEDS ORDERED: Lisinopril 10 MG TAB PO SCH (10:00)
[2019-04-05] MEDS ORDERED: Potassium Chloride 20 MEQ TAB PO SCH (10:00)
[2019-04-05] MEDS: Acetaminophen 325 MG TAB PO PRN ×2 (10:54→17:14)
[2019-04-05] MEDS: guaiFENesin/Dextromethorphan 10 ML UDCUP PO PRN ×2 (11:00→17:16)
[2019-04-05] MEDS: Labetalol HCl 100 MG/20 ML VIAL SLOW IVP PRN (14:10)
--- NOTE | 2019-04-05 16:19 | CON ---
DATE OF CONSULTATION: REASON FOR CONSULTATION: Non Q-wave AR. HISTORY OF PRESENT ILLNESS: Ms. Maldonado is a 68-year-old woman, who has been seen and evaluated by Cardiology in [facility]. She has advanced COPD and tobacco abuse. She recently presented with shortness of breath. She states she normally has shortness of breath that response to Symbicort. This episode it did not. She then proceeded to the emergency room with the above. Troponins were drawn and were elevated. The patient denied chest pain, pressure, neck or jaw discomfort. No other associated ameliorating or exacerbating factors present. PAST MEDICAL HISTORY: Subclavian steal syndrome, severe PVD, severe COPD, hepatitis C, hypertension, continued tobacco abuse. HOME MEDICATIONS: Ellipta, Protonix, lisinopril, Zyrtec, Synthroid, and Symbicort. SOCIAL HISTORY: As above. REVIEW OF SYSTEMS: A 10-point review of systems is reviewed as above, otherwise negative. PHYSICAL EXAMINATION: GENERAL: Patient is a pleasant female, who is in no acute distress. She does appear older than stated age. She is seen sitting up. She states she is not able to lie supine. VITAL SIGNS: Blood pressure 166/85, pulse 80, respirations 20. NEUROLOGIC: The patient is alert and oriented x3 with no focal neurologic deficits. HEENT: Sclerae without icterus. Mouth has moist mucous membranes with normal pallor. NECK: No JVD. Carotid upstroke brisk. No bruits bilaterally. LUNGS: Clear to auscultation with unlabored respirations. BACK: No scoliosis or kyphosis. CARDIAC: Regular rate and rhythm with normal S1 and S2. No S3 or S4 noted. No significant rubs, murmurs, thrills, or gallops noted throughout the precordium. PMI is not displaced. There is no parasternal heave. ABDOMEN: Soft, nontender, nondistended. No peritoneal signs present. No hepatosplenomegaly. No abnormal striae. EXTREMITIES: 2+ femoral and 2+ dorsalis pedis pulses. No cyanosis, clubbing, or edema. SKIN: No gross abnormalities. LABORATORY DATA: Pertinent lab; peak CK-MB of 14.4 on 04/03/2019. Troponin 1.2. EKG shows normal sinus rhythm with left bundle-branch block. Echo Doppler very difficult to assess. Parasternal view is not well seen. Overall, LVEF does appear normal in the apical views. IMPRESSION: 1. Elevated troponin. 2. Advanced chronic obstructive pulmonary disease. 3. Severe PVD. 4. Subclavian steal syndrome. 5. Continued tobacco abuse. 6. DNR. RECOMMENDATIONS: At this point, her elevated troponin likely secondary to type 2 AR from demand ischemia and hypoxia. At this point, the patient has opted for continued medical therapy. We would agree. She is not able to lie flat, which would make a more aggressive approach difficult. She was intubated in the emergency room and is opted to be extubated. She no longer wants to be intubated. At this point, add aspirin. Continue Lovenox in addition to lisinopril. Avoid beta nicola therapy. Continue conservative therapy. We will follow. Job ID: [id number]
--- NOTE | 2019-04-05 16:52 | EKG ---
Test Reason : STAT Blood Pressure : / mmHG Vent. Rate : 119 BPM Atrial Rate : 163 BPM P-R Int : 132 ms QRS Dur : 114 ms QT Int : 362 ms P-R-T Axes : 093 -19 179 degrees QTc Int : 509 ms Sinus tachycardia with frequent PAC's in bigeminal pattern Incomplete right bundle branch block Anteroseptal infarct (cited on or before 02-APR-2019) Abnormal ECG When compared with ECG of 02-APR-2019 22:43, Premature ventricular complexes are now Present Serial changes of Anteroseptal infarct Present Confirmed by DR. Tamiko CHAPARRO ([id number]) on 04/05/2019 4:52:24 PM Referred By: Confirmed By:DR. Tamiko CHAPARRO
[2019-04-05] MEDS: hydrALAZINE 20 MG/ML VIAL SLOW IVP PRN (17:16)
[2019-04-05] MEDS: Budesonide 0.5 MG/2 ML NEB INH SCH (18:25)
[2019-04-06] MEDS: Sodium Chloride 0.9% 1,000 ML IV SCH (05:09)
[2019-04-06] MEDS: methylPREDNISolone Sod Succ 40 MG VIAL IVP SCH (05:09)
[2019-04-06] MEDS: Labetalol HCl 100 MG/20 ML VIAL SLOW IVP PRN ×2 (05:10→08:02)
[2019-04-06 05:31] LABS: Anion Gap 11 mmol/L (10-20); BUN (Urea Nitrogen) 9 mg/dL (9.8-20.1); Calc. Creatinine Clearance 65 mL/min (70-130); Calcium 8.8 mg/dL (7.8-10.44); Carbon Dioxide 25 mmol/L (23-31); Chloride 107 mmol/L (98-107); Estimated GFR-MDRD 88; Glucose 139 mg/dL (80-115); Potassium 3.8 mmol/L (3.5-5.1); Sodium 139 mmol/L (136-145)
--- NOTE | 2019-04-06 06:08 | PDOC.FM ---
- Subjective Subjective: Gail Maldonado seen at bedside this morning. She has no complaints. Her BPs have remained elevated since being in the ICU. She is getting BP checks from thigh cough and pt's nurse state that she is constantly been moving around during vital checks. She is also tachypneic which has happened when she is sitting up and a little agitated. She got ativan once early last night but has not received any xanax yet today, which is what normal improves her tachypnea. She has had no desats and she denies any respiratory distress or difficulty breathing. She remains on the cardizem gtt after being in SVT starting morning of 04/05. Denies fever, chills, chest pain, n/v/abd pain. - Objective MAR Reviewed: Yes Vital Signs & Weight: Vital Signs (12 hours) Temp Pulse Resp BP Pulse Ox 04/06/19 05:10 83 215/112 H 04/06/19 04:00 98.9 F 04/06/19 00:00 98.0 F 04/05/19 21:42 70 20 04/05/19 20:00 97.8 F 96 04/05/19 18:26 72 24 H 100 04/05/19 18:25 72 24 H 100 Weight Admit Weight 50.2 kg Weight 50.2 kg Most Recent Monitor Data Heart Rate from ECG 59 NIBP 172/63 NIBP BP-Mean 99 Respiration from ECG 34 SpO2 95 I&O: 04/04/19 04/05/19 04/06/19 06:59 06:59 06:59 Intake Total 2501.4 2402 3136 Output Total 600 2903 1800 Balance 1901.4 -501 1336 Result Diagrams: 04/06/19 05:09 04/06/19 05:09 Phys Exam - Physical Examination Constitutional: NAD HEENT: moist MMs, sclera anicteric Neck: no JVD, supple diffuse rhonchi, decreased air movement Cardiovascular: RRR, no significant murmur Gastrointestinal: soft, non-tender, no distention, positive bowel sounds Musculoskeletal: no edema, pulses present Neurological: non-focal, normal sensation, moves all 4 limbs Psychiatric: normal affect, A&O x 3 Skin: cap refill <2 seconds Dx/Plan (1) Acute hypercapnic respiratory failure Code(s): J96.02 - ACUTE RESPIRATORY FAILURE WITH HYPERCAPNIA Status: Acute (2) Anxiety Code(s): F41.9 - ANXIETY DISORDER, UNSPECIFIED Status: Chronic (3) COPD exacerbation Code(s): J44.1 - CHRONIC OBSTRUCTIVE PULMONARY DISEASE W (ACUTE) EXACERBATION Status: Acute (4) HTN (hypertension) Code(s): I10 - ESSENTIAL (PRIMARY) HYPERTENSION Status: Chronic (5) Hepatitis C Code(s): B19.20 - UNSPECIFIED VIRAL HEPATITIS C WITHOUT HEPATIC COMA Status: Chronic (6) NSTEMI (non-ST elevated myocardial infarction) Code(s): I21.4 - NON-ST ELEVATION (NSTEMI) MYOCARDIAL INFARCTION Status: Acute (7) Tobacco abuse Code(s): Z72.0 - TOBACCO USE Status: Acute - Plan Plan: 68 yo F with severe COPD, NSTEMI here for acute hypercapenic resp failure #Acute hypercapneic respiratory failure 2/2 COPD exacerbation/Anxiety -post extubation day 2, on RA, no desats overnight, keep in ICU possible may decompensate and need re-intubation -started dulera 04/05, cont. MANUEL duonebs & steroids -anxiety large component of respiratory issues, on xanax QID, prn ativan -pulm on board, recs appreciated -palliative care consulted to discuss ADA -can probably transfer to floor today -oxygen qualifying trial #acute COPD exacerbation -no developing infiltrate suggestive of PNA on imaging, no WBC, neg procal-abx not indicated -see above #NSTEMI, type 2 -likely demand in light of downtrending trops, no chest pain -EKG with LBBB; no T wave inv/ST elevations however no prior EKG to compare -prior EKG and NST in 2006 WNL -trop downtrending -ASA -cards on board-recommended medical management, recs appreciated #Anxiety -started on xanax QID since contributing to respiratory issues -discussed dry ice maker SSRI, pt interested in discussing at later point #Skin excoriations/wounds -wound care consulted #HTN, uncontrolled -likely anxiety induced -will discuss inc in home lisinopril dose #Hypothyroidism -subclinical hypoT -resume home synthroid -monitor & adjust outpt #Hep C -Normal LFTs -HIV/RPR negative -pending hep C viral panel #Tobacco abuse -Director Of Hotel cessation Dispo: >2 midnights PCP: Dr Levi Sheffield Lines: left AC, right AC dvt ppx: ppx lovenox gi ppx: home protonix Code: DNR Will discuss with Dr. Lyle Addendum - Attending - Attending Attestation Date/Time: 04/06/192010 I personally evaluated the patient and discussed the management with Dr. Amador I agree with the History, Examination, Assessment and Plan documented above with any addition or exceptions noted below.
[2019-04-06 07:00] LABS: Band 5 % (5-11); Hemoglobin 12.8 g/dL (12.0-16.0); Lymphocytes 3 % (21-51); MDiff Complete? YES; Mean Corpuscular HGB CONC 32.1 g/dL (32.0-36.0); Mean Corpuscular Hemoglobin 32.2 pg (27.0-31.0); Mean Platelet Volume 7.1 fL (7.4-10.4); Monocytes 3 % (0-10); Neutrophil 89 % (42-75); Platelet Count 373 thou/uL (130-400); RBC Distribution Width 11.8 % (11.5-14.5); Red Blood Cell (RBC) Count 3.97 mill/uL (4.20-5.40); White Blood Cell (WBC) Count 11.4 thou/uL (4.8-10.8)
[2019-04-06] MEDS: ALPRAZolam 0.25 MG TAB PO PRN ×2 (07:45→14:51)
[2019-04-06] MEDS: Enoxaparin Sodium 40 MG/0.4 ML SYRINGE SC SCH (07:55)
[2019-04-06] MEDS: Loratadine 10 MG TAB PO SCH (07:55)
[2019-04-06] MEDS: Budesonide 0.5 MG/2 ML NEB INH SCH ×2 (08:12→19:05)
[2019-04-06] MEDS: Mometasone/Formoterol 120 PUFF INHALER INH SCH ×2 (08:13→19:05)
[2019-04-06] MEDS ORDERED: Lisinopril 10 MG TAB PO SCH (09:00)
[2019-04-06] MEDS ORDERED: Lisinopril 20 MG TAB PO SCH (09:00)
[2019-04-06] MEDS ORDERED: Magnesium 2 GM/50 ML 2 GM in Premix Bag 1 BAG IVPB SCH (09:15)
[2019-04-06] MEDS ORDERED: Furosemide 20 MG/2 ML VIAL SLOW IVP SCH (09:15)
[2019-04-06] MEDS ORDERED: Potassium Chloride 20 MEQ TAB PO SCH (09:15)
--- NOTE | 2019-04-06 10:06 | PRG ---
DATE OF SERVICE: 04/06/2019 SERVICE: Pulmonary Medicine. INTERVAL HISTORY: The patient is doing poorly from respiratory standpoint. She is refusing all nebulized medications. Denies any current fevers or chills. She is coughing and bringing up some phlegm. She has a hard time expectorating it. Otherwise, she has no specific complaints. She would like to move a little bit more. She remains on IV fluids. She is tolerating some p.o. for the most part. She does not have much of an appetite because she said her food is dry. PHYSICAL EXAMINATION: VITAL SIGNS: Afebrile, pulse 83, blood pressure 215/112, respirations 25, and saturation 94%, currently on room air. GENERAL: The patient is awake and alert. She is using accessory muscles and has mild respiratory distress. HEENT: Normocephalic and atraumatic. Sclerae white. Conjunctivae pink. Oral mucosa is moist without lesions. LUNGS: Decreased air entry. There are extensive rhonchi and prolonged expiratory phase with polyphonic wheezing. Dependent crackles are also subtly present. HEART: Normal rate and regular. ABDOMEN: Soft, nontender, and nondistended. Bowel sounds are positive. MUSCULOSKELETAL: No cyanosis or clubbing. There is 1+ pitting in the bilateral lower extremities. NEUROLOGIC: Grossly nonfocal. LABORATORY DATA: WBC 11.4, hemoglobin 12.8, and platelets 373,000. Basic metabolic profile is completely unremarkable except for potassium of 3.8. Magnesium 1.9. Urine drug screen is unremarkable. Plasma alcohol level is negative. Blood cultures x2 are unremarkable. IMAGING STUDIES: Echocardiogram demonstrates no good views. There is some diastolic dysfunction present. Parasternal views could not be performed. ASSESSMENT: 1. Acute hypoxic and hypercapnic respiratory failure, resolving. 2. Chronic obstructive pulmonary disease with acute exacerbation. 3. Anxiety disorder. DISCUSSION AND PLAN: I am going to give her some more potassium and magnesium. IV fluids will be interrupted, we will give her small dose of Lasix because she is significantly positive for this hospital stay. We will get her into a chair 3 times daily with meals. Physical Therapy will be involved. We will increase our mobilization efforts through time as tolerated. She is requesting a walker. If this is appropriate, physical therapy may be able to provide her with one during this hospital stay. She is basically told me that she has full intentions of suing the ambulance service and/or the hospital for providing interventions that she specifically told them not to perform. I would certainly hate to be in a position similar to our EMS service as a healthcare provider that is watching someone struggle. Job ID: [id number] MTDD
[2019-04-06] MEDS: Lorazepam 2 MG/ML VIAL SLOW IVP PRN ×2 (10:36→23:40)
[2019-04-06] MEDS: hydrALAZINE 20 MG/ML VIAL SLOW IVP PRN (10:38)
[2019-04-06 11:09] LABS: Hep C PCR-Quant HCV Not Detected IU/mL (.)
--- NOTE | 2019-04-06 11:36 | PDOC.CPN ---
- Subjective Date: 04/06/19 Time: 14:40 Interval history: No changes Continues with SOB - Objective Allergies/Adverse Reactions: Allergies Allergy/AdvReac Type Severity Reaction Status Date / Time buspirone [From BuSpar] Allergy Intermediate Hives Verified 04/05/19 07:39 ondansetron [From Zofran] Allergy Intermediate Nausea Verified 04/05/19 07:39 Penicillins Allergy Intermediate Hives Verified 04/05/19 07:39 Sulfa (Sulfonamide Allergy Intermediate Severe Verified 04/05/19 07:39 Antibiotics) Hives Visit Medications: Current Medications Acetaminophen (Tylenol) 650 mg DE Q4H PRN PRN Reason: Headache/Fever/Mild Pain (1-3) Acetaminophen (Tylenol) 650 mg PO Q6H PRN PRN Reason: Headache/Fever or Pain Last Admin: 04/05/19 17:14 Dose: 650 mg Albuterol/Ipratropium (Duoneb) 3 ml NEB [id number] MANUEL Last Admin: 04/06/19 10:47 Dose: Not Given Alprazolam (Xanax) 0.25 mg PO QIDPRN PRN PRN Reason: Anxiety Last Admin: 04/05/19 19:52 Dose: 0.25 mg Budesonide (Pulmicort Neb Solution) 0.5 mg INH BID-RT MANUEL Last Admin: 04/06/19 08:12 Dose: Not Given Enoxaparin Sodium (Lovenox) 40 mg SC 0900 MANUEL Last Admin: 04/06/19 07:55 Dose: 40 mg Furosemide (Lasix) 20 mg SLOW IVP NOW MANUEL Stop: 04/06/19 12:00 Last Admin: 04/06/19 09:26 Dose: 20 mg Guaifenesin/Dextromethorphan (Robitussin Dm) 5 ml PO Q6H PRN PRN Reason: Cough Last Admin: 04/05/19 17:16 Dose: 5 ml Hydralazine HCl (Apresoline) 10 mg SLOW IVP Q4H PRN PRN Reason: systolic BP > 180 Last Admin: 04/06/19 10:38 Dose: 10 mg Diltiazem HCl 125 mg/Miscellaneous Medication 1 each/ Sodium Chloride 125 mls @ 5 mls/hr IVPB INF MANUEL; Protocol Last Admin: 04/05/19 08:48 Dose: 125 mls Magnesium Sulfate 2 gm/ Device 50 mls @ 100 mls/hr IVPB NOW [facility] Stop: 04/06/19 13:00 Last Admin: 04/06/19 10:07 Dose: 50 mls Labetalol HCl (Normodyne) 5 mg SLOW IVP Q4H PRN PRN Reason: SBP >180 AND HR >70 Last Admin: 04/06/19 08:02 Dose: 5 mg Levothyroxine Sodium (Synthroid) 75 mcg PO 0600 [facility] Lisinopril (Zestril) 10 mg PO DAILY [facility] Loratadine (Claritin) 10 mg PO DAILY [facility] Last Admin: 04/06/19 07:55 Dose: 10 mg Lorazepam (Ativan) 2 mg SLOW IVP Q2H PRN PRN Reason: Anxiety/Restlessness/Sleep Last Admin: 04/06/19 10:36 Dose: 2 mg Mometasone Furoate/Formoterol Fumar (Dulera 200 Mcg/5 Mcg Inhaler) 2 puff INH BID-RT [facility] Last Admin: 04/06/19 08:13 Dose: Not Given Discontinue Previous Narcotic Pain Medications And Benzodiazepines 1 each FS .ONE [facility] Stop: 05/02/19 14:47 Pantoprazole Sodium (Protonix) 40 mg PO DAILY [facility] Last Admin: 04/06/19 07:55 Dose: 40 mg Potassium Chloride (K-Dur) 40 meq PO NOW [facility] Stop: 04/06/19 12:00 Last Admin: 04/06/19 09:27 Dose: 40 meq Prednisone (Prednisone) 40 mg PO QAM-WM [facility] Stop: 04/10/19 08:01 Quetiapine Fumarate (Seroquel) 25 mg PO HS [facility] Last Admin: 04/05/19 19:53 Dose: Not Given Sodium Chloride (Flush - Normal Saline) 10 ml IVF PRN PRN PRN Reason: Saline Flush Vital Signs & Weight: Vital Signs Temp Pulse BP Pulse Ox 04/06/19 10:38 83 215/112 H 04/06/19 08:14 94 L 04/06/19 08:02 83 215/112 H 04/06/19 08:00 98.2 F 96 04/06/19 05:10 83 215/112 H 04/06/19 04:00 98.9 F 04/06/19 00:00 98.0 F Admit Weight 110 lb 10.753 oz Weight 110 lb 10.753 oz - Physical Exam General: cachectic Neck: supple neck, no lymphadenopathy Cardiac: regular rate and rhythm, no murmur Lungs: decreased breath sounds, bibasilar rales Abdomen: unremarkable (Pt not able to lie flat) - Labs Result Diagrams: 04/06/19 05:09 04/06/19 05:09 Troponin/CKMB CK-MB (CK-2) 13.2 ng/mL (0-6.6) H* 04/03/19 06:08 Troponin I 0.752 ng/mL (< 0.028) H* 04/03/19 06:08 - Assessment/Plan Assessment/Plan: Type 2 [place] Sefere COPD Contiues tobacco abuse PVD No new recommendations Spoke with DR. Michael today Pt not a candidate for any invasive treatment options at this time Continue with medical therapy Please reconsult of other questions arise
[2019-04-06] MEDS: Nicotine 14 MG PATCH TD SCH (15:00)
--- NOTE | 2019-04-06 15:07 | EKG ---
Test Reason : Blood Pressure : / mmHG Vent. Rate : 106 BPM Atrial Rate : 106 BPM P-R Int : 142 ms QRS Dur : 122 ms QT Int : 382 ms P-R-T Axes : 084 -60 098 degrees QTc Int : 507 ms Sinus tachycardia Possible Left atrial enlargement Left axis deviation Left bundle branch block Abnormal ECG Confirmed by RON GERMAIN DO ([id number]), assignment desk editor DAGO DIAZ ([id number]) on 04/06/2019 3:07:22 PM Referred By: Confirmed By:RON GERMAIN DO
[2019-04-07] MEDS: Lorazepam 2 MG/ML VIAL SLOW IVP PRN (02:25)
[2019-04-07] MEDS: Guaifenesin DM 100-10/5 ML UDCUP PO PRN ×2 (02:37→09:09)
[2019-04-07] MEDS ORDERED: Levothyroxine Sodium 75 MCG TAB PO SCH (06:00)
[2019-04-07] MEDS: Levothyroxine Sodium 75 MCG TAB PO SCH (06:33)
[2019-04-07] MEDS: Budesonide 0.5 MG/2 ML NEB INH SCH ×2 (06:34→19:04)
[2019-04-07] MEDS: Mometasone/Formoterol 120 PUFF INHALER INH SCH ×2 (06:35→19:20)
--- NOTE | 2019-04-07 07:29 | PDOC.FM ---
- Subjective Subjective: Gail Maldonado is seen at bedside this morning. She is doing well. States that she is feeling better from a respiratory standpoint but she still has been dealing with cough and occasional dyspnea, especially when she is anxious. She denies any fever, chills, chest pain, n/v, abdominal pain. There were no acute events overnight. - Objective MAR Reviewed: Yes Vital Signs & Weight: Vital Signs (12 hours) Temp Pulse Ox 04/07/19 06:36 94 L 04/07/19 04:00 97.8 F 04/07/19 00:00 97.6 F 04/06/19 20:00 97.6 F 96 Weight Admit Weight 50.2 kg Weight 50.2 kg Most Recent Monitor Data Heart Rate from ECG 58 NIBP 147/63 NIBP BP-Mean 91 Respiration from ECG 33 SpO2 94 I&O: 04/06/19 04/07/19 04/08/19 06:59 06:59 06:59 Intake Total 3136 762 Output Total 1999 2650 Balance 1136 -1888 Result Diagrams: 04/06/19 05:09 04/06/19 05:09 Phys Exam - Physical Examination Constitutional: NAD HEENT: moist MMs, sclera anicteric Neck: supple, full ROM diffuse rhonchi, prolonged expiratory phase Cardiovascular: RRR, no significant murmur Gastrointestinal: soft, non-tender, no distention Musculoskeletal: no edema, pulses present Neurological: non-focal, moves all 4 limbs Psychiatric: normal affect, A&O x 3 Skin: cap refill <2 seconds Dx/Plan (1) Acute hypercapnic respiratory failure Code(s): J96.02 - ACUTE RESPIRATORY FAILURE WITH HYPERCAPNIA Status: Acute (2) Anxiety Code(s): F41.9 - ANXIETY DISORDER, UNSPECIFIED Status: Chronic (3) COPD exacerbation Code(s): J44.1 - CHRONIC OBSTRUCTIVE PULMONARY DISEASE W (ACUTE) EXACERBATION Status: Acute (4) HTN (hypertension) Code(s): I10 - ESSENTIAL (PRIMARY) HYPERTENSION Status: Chronic (5) Hepatitis C Code(s): B19.20 - UNSPECIFIED VIRAL HEPATITIS C WITHOUT HEPATIC COMA Status: Chronic (6) NSTEMI (non-ST elevated myocardial infarction) Code(s): I21.4 - NON-ST ELEVATION (NSTEMI) MYOCARDIAL INFARCTION Status: Acute (7) Tobacco abuse Code(s): Z72.0 - TOBACCO USE Status: Acute - Plan Plan: 68 yo F with severe COPD, NSTEMI here for acute hypercapenic resp failure #Acute hypercapneic respiratory failure 2/2 COPD exacerbation/Anxiety: improving -post extubation day 3, on RA -started dulera 04/05, cont. MANUEL duonebs & steroids -anxiety large component of respiratory issues, on xanax QID, prn ativan -pulm on board, recs appreciated -palliative care consulted to discuss ADA -can probably transfer to floor today, depending on pulm recs #acute COPD exacerbation -no developing infiltrate suggestive of PNA on imaging, no WBC, neg procal-abx not indicated -see above #NSTEMI, type 2 -likely demand in light of downtrending trops, no chest pain -EKG with LBBB; no T wave inv/ST elevations however no prior EKG to compare -prior EKG and NST in 2006 WNL -trop downtrending -ASA -cards on board-recommended medical management, recs appreciated #Anxiety -started on xanax QID since contributing to respiratory issues -starting SSRI today -prn ativan #Skin excoriations/wounds -wound care consulted #HTN, uncontrolled -likely anxiety induced -will discuss inc in home lisinopril dose #Hypothyroidism -subclinical hypoT -resume home synthroid -monitor & adjust outpt #Hep C -Normal LFTs -HIV/RPR negative -pending hep C viral panel #Tobacco abuse -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 Amador I agree with the History, Examination, Assessment and Plan documented above with any addition or exceptions noted below. Patient's anxiety continue to be a significant barrier to her care.
[2019-04-07] MEDS: ALPRAZolam 0.25 MG TAB PO PRN ×2 (07:53→18:24)
[2019-04-07] MEDS: predniSONE 20 MG TAB PO SCH (07:53)
[2019-04-07] MEDS ORDERED: Lisinopril 10 MG TAB PO SCH (09:00)
[2019-04-07] MEDS: Loratadine 10 MG TAB PO SCH (09:02)
[2019-04-07] MEDS: Enoxaparin Sodium 40 MG/0.4 ML SYRINGE SC SCH (09:02)
[2019-04-07] MEDS: hydrALAZINE 20 MG/ML VIAL SLOW IVP PRN (10:57)
[2019-04-07] MEDS: Escitalopram Oxalate 10 mg Tablet PO SCH ×2 (11:54→12:02)
[2019-04-07] MEDS ORDERED: guaiFENesin ER 600 MG TAB PO SCH (12:00)
[2019-04-07] MEDS: Nicotine 14 MG PATCH TD SCH (14:08)
--- NOTE | 2019-04-07 14:56 | PRG ---
DATE OF SERVICE: 04/07/2019 SERVICE: Pulmonary Medicine. INTERVAL HISTORY: The patient is doing fine from respiratory standpoint. She is improved compared to when she came in, but not anywhere near baseline yet. She still has a little bit of dyspnea, and minimal accessory muscle use. That being said, she appears to be more conversational today. PHYSICAL EXAMINATION: VITAL SIGNS: Afebrile, pulse 68, blood pressure 186/97, respirations 23, and saturation 94% on room air. GENERAL: The patient is awake and alert, in no apparent distress. LUNGS: Very reduced air entry. There is a prolonged expiratory phase. Polyphonic wheezing is noted. That being said, she is really not moving enough air to hear other adventitious sounds. HEART: Normal rate, regular. ABDOMEN: Soft, nontender, and nondistended. Bowel sounds are positive. MUSCULOSKELETAL: No cyanosis or clubbing. No pitting in bilateral lower extremities. NEUROLOGIC: Grossly nonfocal. LABORATORY DATA: WBC 11.4, hemoglobin 12.8, and platelets 373,000. Blood cultures x2 are negative. ASSESSMENT: 1. Acute hypoxic and hypercapnic respiratory failure, resolved. 2. Chronic obstructive pulmonary disease with acute exacerbation. 3. Non-ST elevation myocardial infarction secondary to demand. 4. Anxiety disorder. DISCUSSION AND PLAN: I am going to schedule some Mucinex, though she is having a hard time liberating the sputum. She tells me she is refusing the DuoNeb because she gets choked up on her sputum and is afraid of them. As such, I am going to initiate MetaNeb medications to see if we can facilitate removal of these things. We will also give her an Acapella valve that she can use that can hopefully liberate some of the sputum. From my perspective, she is stable for transition out of the ICU to the medical unit. She is certainly not ready for transition home at this moment. Job ID: [id number] [facility]
[2019-04-07] MEDS ORDERED: Benzonatate 100 MG CAP PO SCH (15:00)
[2019-04-07] MEDS: guaiFENesin ER 600 MG TAB PO SCH (19:56)
[2019-04-08] MEDS: ALPRAZolam 0.25 MG TAB PO PRN ×2 (01:37→07:50)
[2019-04-08] MEDS: Budesonide 0.5 MG/2 ML NEB INH SCH ×2 (06:07→18:36)
[2019-04-08] MEDS: Levothyroxine Sodium 75 MCG TAB PO SCH (06:10)
--- NOTE | 2019-04-08 06:32 | PDOC.FM ---
- Subjective Subjective: NAEO. anxiety improved. able to walk to bathroom with walker. off of oxygen. denies chest pain - Objective MAR Reviewed: Yes Vital Signs & Weight: Vital Signs (12 hours) Temp Pulse Resp BP Pulse Ox 04/08/19 06:07 70 40 H 95 04/08/19 03:53 98.2 F 70 20 175/90 H 92 L 04/08/19 00:50 98.3 F 81 20 175/77 H 90 L 04/07/19 20:29 97.8 F 83 24 H 190/84 H 92 L 04/07/19 20:00 92 L 04/07/19 19:03 83 20 96 Weight Admit Weight 50.2 kg Weight 50.2 kg Most Recent Monitor Data Heart Rate from ECG 72 NIBP 170/83 NIBP BP-Mean 112 Respiration from ECG 22 SpO2 94 I&O: 04/06/19 04/07/19 04/08/19 06:59 06:59 06:59 Intake Total 3136 762 400 Output Total 1999 2650 200 Balance 1136 -1888 200 Result Diagrams: 04/06/19 05:09 04/06/19 05:09 Phys Exam - Physical Examination Constitutional: NAD cachectic appearing Neck: no nodes, no JVD Respiratory: no wheezing, no rales, no rhonchi dec respiratory sounds diffusely Cardiovascular: RRR, no significant murmur Gastrointestinal: soft, non-tender Musculoskeletal: no edema Neurological: non-focal, moves all 4 limbs Dx/Plan (1) NSTEMI (non-ST elevated myocardial infarction) Code(s): I21.4 - NON-ST ELEVATION (NSTEMI) MYOCARDIAL INFARCTION Status: Acute (2) Acute hypercapnic respiratory failure Code(s): J96.02 - ACUTE RESPIRATORY FAILURE WITH HYPERCAPNIA Status: Acute (3) COPD exacerbation Code(s): J44.1 - CHRONIC OBSTRUCTIVE PULMONARY DISEASE W (ACUTE) EXACERBATION Status: Acute (4) HTN (hypertension) Code(s): I10 - ESSENTIAL (PRIMARY) HYPERTENSION Status: Chronic (5) Hepatitis C Code(s): B19.20 - UNSPECIFIED VIRAL HEPATITIS C WITHOUT HEPATIC COMA Status: Chronic (6) Tobacco abuse Code(s): Z72.0 - TOBACCO USE Status: Acute (7) Anxiety Code(s): F41.9 - ANXIETY DISORDER, UNSPECIFIED Status: Chronic - Plan Plan: 68 yo F with severe COPD, NSTEMI here for acute hypercapenic resp failure #Acute hypercapneic respiratory failure 2/2 COPD exacerbation/Anxiety: improving -post extubation day 3, on RA -refusing duonebs. on pulmicort, MANUEL mucinex, dulera, prednisone, acapella valve. Pulm recs apprecaited -anxiety large component of respiratory issues, on xanax QID, prn ativan #Physical deconditioning -rehab screen, CM consulted #acute COPD exacerbation -no developing infiltrate suggestive of PNA on imaging, no WBC, neg procal-abx not indicated -see above #NSTEMI, type 2 -cards on board-medical management with ASA, lisinopril, avoid BB therapy -starting statin, ASCVD risk 25.6% #Anxiety -started on xanax QID since contributing to respiratory issues -started lexapro -prn ativan #Skin excoriations/wounds -wound care consulted #HTN, uncontrolled -likely anxiety induced but uncontrolled so will inc. 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 pulm on board, recs appreciated. Continue COPD meds. Improving slowly. 2) HTN- inc lisinopril dose. 3) Anxiety- improved, continue lexapro and ativan PRN. consider hydroxyzine PRN. 4) NSTEMI II- no CP. continue medical mgmt with ASA. Starting statin will discuss with Dr. William Addendum - Attending - Attending Attestation Date/Time: 04/08/192108 I personally evaluated the patient and discussed the management with Dr. Oneil at 0910 am. I agree with the History, Examination, Assessment and Plan documented above with any addition or exceptions noted below. Severe COPD- appreciate pulm recs. Work on rehab vs SNF placement. HTN- increase RONALD Inh.
[2019-04-08] MEDS: Mometasone/Formoterol 120 PUFF INHALER INH SCH ×2 (06:35→18:36)
[2019-04-08] MEDS: Lisinopril 20 MG TAB PO SCH (07:45)
[2019-04-08] MEDS: predniSONE 20 MG TAB PO SCH (07:45)
[2019-04-08] MEDS: guaiFENesin ER 600 MG TAB PO SCH ×2 (07:45→20:00)
[2019-04-08] MEDS: Escitalopram Oxalate 10 mg Tablet PO SCH (07:45)
[2019-04-08] MEDS: Benzonatate 100 MG CAP PO SCH ×3 (07:45→20:00)
[2019-04-08] MEDS: Enoxaparin Sodium 40 MG/0.4 ML SYRINGE SC SCH (07:46)
[2019-04-08] MEDS: Loratadine 10 MG TAB PO SCH (07:46)
--- NOTE | 2019-04-08 07:50 | PRG ---
DATE OF SERVICE: SUBJECTIVE: She never wants be be intubated again and is adamant about this. Lungs breath sounds are equal HEART: Regular rhythm. ABDOMEN: Soft. EXTREMITIES: no edema IMPRESSION AND PLAN: 1. Severe chronic obstructive pulmonary disease exacerbation, status post mechanical ventilation. 2. Hypertension off Cardene drip. 3. Severe anxiety, will likely benefit from xanax assisted Job ID: [id number] [facility]
[2019-04-08] MEDS: Lorazepam 2 MG/ML VIAL SLOW IVP PRN (11:33)
[2019-04-08] MEDS: Nicotine 14 MG PATCH TD SCH (14:51)
[2019-04-08] MEDS: ALPRAZolam 0.25 MG TAB PO SCH ×2 (14:54→20:01)
--- NOTE | 2019-04-08 16:40 | PRG ---
DATE OF SERVICE: 04/08/2019 Gail Maldonado did well over the weekend. She is less anxious than she was on Monday. She said the handful of pills she had to take this morning led to nausea, which made her not want to eat. She recognizes that she has to eat to maintain her strength, so we will simplify some of her medicines for now. She can probably do without her lipid drugs and hold her thyroid for a few days to make sure nausea goes away.She probably does need to stay on her RONALD inhibitor. The antihistamine probably ads very little given the steroid dosing that she is on. She does not want to take the Protonix as well, so this can be held for short period of time, if not indefinitely. We will continue with supportive care. I would think about discharge planning versus a skilled unit. Impression Advanced COPD Chronic respiratory failure I am ordering home noninvasive ventilation for night time use and prn. Traditional BIPAP will not be sufficient. Job ID: [id number] [facility]
[2019-04-08] MEDS ORDERED: Atorvastatin Calcium 40 MG TAB PO SCH (21:00)
[2019-04-09] MEDS: hydrALAZINE 20 MG/ML VIAL SLOW IVP PRN ×2 (04:09→06:01)
[2019-04-09] MEDS: ALPRAZolam 0.25 MG TAB PO SCH ×4 (04:18→23:08)
[2019-04-09] MEDS: Budesonide 0.5 MG/2 ML NEB INH SCH ×2 (06:43→19:05)
[2019-04-09] MEDS: Mometasone/Formoterol 120 PUFF INHALER INH SCH ×2 (06:48→19:06)
--- NOTE | 2019-04-09 06:59 | PDOC.FM ---
- Subjective Subjective: Breathing much improved, able to walk to bathroom with walker. Able to cough up mucus yesterday; feeling better. Looking forward to going to rehab. - Objective MAR Reviewed: Yes Vital Signs & Weight: Vital Signs (12 hours) Temp Pulse Resp BP BP BP Pulse Ox 04/09/19 06:43 71 18 95 04/09/19 06:27 188/66 H 04/09/19 06:01 61 203/63 H 04/09/19 03:52 97.9 F 66 16 195/96 H 92 L 04/08/19 23:46 98.6 F 72 16 157/61 H 92 L 04/08/19 20:00 93 L 04/08/19 19:33 98.0 F 78 22 H 164/71 H 93 L Weight Admit Weight 50.2 kg Weight 50.2 kg Most Recent Monitor Data Heart Rate from ECG 72 NIBP 170/83 NIBP BP-Mean 112 Respiration from ECG 22 SpO2 94 I&O: 04/07/19 04/08/19 04/09/19 06:59 06:59 06:59 Intake Total 508 949 0539 Output Total 2650 200 Balance -2242 312 7545 Result Diagrams: 04/06/19 05:09 04/06/19 05:09 Phys Exam - Physical Examination Constitutional: NAD less anxious HEENT: PERRLA, moist MMs Neck: no JVD improved breath sounds, no wheezing no prolonged expiration Cardiovascular: RRR, no significant murmur Gastrointestinal: soft, non-tender Neurological: non-focal, moves all 4 limbs Dx/Plan (1) NSTEMI (non-ST elevated myocardial infarction) Code(s): I21.4 - NON-ST ELEVATION (NSTEMI) MYOCARDIAL INFARCTION Status: Acute (2) Acute hypercapnic respiratory failure Code(s): J96.02 - ACUTE RESPIRATORY FAILURE WITH HYPERCAPNIA Status: Acute (3) COPD exacerbation Code(s): J44.1 - CHRONIC OBSTRUCTIVE PULMONARY DISEASE W (ACUTE) EXACERBATION Status: Acute (4) HTN (hypertension) Code(s): I10 - ESSENTIAL (PRIMARY) HYPERTENSION Status: Chronic (5) Hepatitis C Code(s): B19.20 - UNSPECIFIED VIRAL HEPATITIS C WITHOUT HEPATIC COMA Status: Chronic (6) Tobacco abuse Code(s): Z72.0 - TOBACCO USE Status: Acute (7) Anxiety Code(s): F41.9 - ANXIETY DISORDER, UNSPECIFIED Status: Chronic - Plan Plan: 68 yo F with severe COPD, NSTEMI here for acute hypercapenic resp failure #Acute hypercapneic respiratory failure 2/2 COPD exacerbation/Anxiety: improving -post extubation day 4, nonhypoxic on RA -refusing duonebs. on pulmicort, MANUEL mucinex, dulera, prednisone, acapella valve. Pt improved especially with breathing treaments. Pulm recs apprecaited -anxiety large component of respiratory issues, on xanax QID, prn ativan #Physical deconditioning -rehab screen, CM consulted -plan for intpt rehab #acute COPD exacerbation -no developing infiltrate suggestive of PNA on imaging, no WBC, neg procal-abx not indicated -see above #NSTEMI, type 2 -cards on board-medical management with ASA, lisinopril, avoid BB therapy -starting statin, ASCVD risk 25.6% #Anxiety -started on xanax QID since contributing to respiratory issues -started lexapro -prn ativan -will switch to longer acting benzo #Skin excoriations/wounds -wound care consulted #HTN, uncontrolled -likely anxiety induced but uncontrolled despite inc. 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 pulm on board, recs appreciated. Continue COPD meds. Improving slowly. 2) HTN- will add second antihypertensive. 3) Anxiety- improved, continue lexapro, MANUEL xanax and ativan PRN. will discuss switch to longer acting muna. 4) NSTEMI II- no CP. continue medical mgmt with ASA. Starting statin Dispo: Inpt rehab will discuss with Dr. William Addendum - Attending - Attending Attestation Date/Time: 04/09/192117 I personally evaluated the patient and discussed the management with Dr. Oneil I agree with the History, Examination, Assessment and Plan documented above with any addition or exceptions noted below. Severe COPD- improving and near baseline- continue steroid and nebs. Appreciate paula linares Anxiety- on lexapro and dacia zaldivar Working on placement in SNF for conditioning.
[2019-04-09] MEDS: guaiFENesin ER 600 MG TAB PO SCH ×2 (08:13→20:33)
[2019-04-09] MEDS: predniSONE 20 MG TAB PO SCH (08:13)
[2019-04-09] MEDS: Lisinopril 20 MG TAB PO SCH (08:13)
[2019-04-09] MEDS: Benzonatate 100 MG CAP PO SCH ×3 (08:13→20:33)
[2019-04-09] MEDS: Enoxaparin Sodium 40 MG/0.4 ML SYRINGE SC SCH (08:13)
[2019-04-09] MEDS: Escitalopram Oxalate 10 mg Tablet PO SCH (08:13)
[2019-04-09] MEDS ORDERED: Lisinopril 10 MG TAB PO SCH (11:40)
[2019-04-09] MEDS ORDERED: Lisinopril 10 MG TAB PO ONE (11:40)
[2019-04-09] MEDS ORDERED: Lisinopril 20 MG TAB PO SCH (11:45)
[2019-04-09] MEDS ORDERED: Polyethylene Glycol 3350 17 GM Packet PO PRN (14:58)
[2019-04-09] MEDS: Nicotine 14 MG PATCH TD SCH (16:16)
--- NOTE | 2019-04-09 16:29 | PRG ---
DATE OF SERVICE: 04/08/2019 SUBJECTIVE: Gail Maldonado continues to improve. She lives alone, so she is nervous about going to the house. She is willing to go to Skilled for some therapy. OBJECTIVE: VITAL SIGNS: She is afebrile. Heart rate 68, respiratory rate is 20, oximetry is 92% on room air, blood pressure is 180/76. LUNGS: Distant and clear. HEART: Regular rhythm. ABDOMEN: Soft. IMPRESSION: Chronic obstructive pulmonary disease exacerbation for the most part, resolved. She is stable to go to a Skilled unit. She is near her baseline from a Pulmonary standpoint. She could use a little better blood pressure control. We will change her nebulized treatments to q.4 hours while awake and discontinue the EzPAP. She will continue with mucolytics. Her Synthroid can be restarted at discharge. She really is complaining about all of her pills and probably should have her lisinopril restarted or another drug that she is willing to take. She is difficult from an anxiety perspective. She was treating her anxiety with her tobacco use and is no longer smoking. She might also benefit from increasing her dose of Seroquel at bedtime. Job ID: [id number] [facility]
--- NOTE | 2019-04-10 04:36 | PDOC.FM ---
- Subjective Subjective: She is doing better this morning. She is breathing well. She has not had a BM in 8 days. She says she feels week. She says she ate well yesterday. - Objective MAR Reviewed: Yes Vital Signs & Weight: Vital Signs (12 hours) Temp Pulse Resp BP Pulse Ox 04/10/19 00:00 98.3 F 71 20 177/74 H 95 04/09/19 20:00 94 L 04/09/19 19:36 98.1 F 74 22 H 176/65 H 94 L 04/09/19 19:04 62 04/09/19 18:00 98.3 F 62 20 165/74 H 93 L Weight Admit Weight 50.2 kg Weight 50.2 kg Most Recent Monitor Data Heart Rate from ECG 72 NIBP 170/83 NIBP BP-Mean 112 Respiration from ECG 22 SpO2 94 I&O: 04/08/19 04/09/19 04/10/19 06:59 06:59 06:59 Intake Total 400 1960 1500 Output Total 200 Balance 200 1960 1500 Result Diagrams: 04/06/19 05:09 04/06/19 05:09 Phys Exam - Physical Examination Constitutional: NAD HEENT: PERRLA, moist MMs Neck: supple, full ROM Respiratory: clear to auscultation bilateral (decreased breath sound most likely 2/2 hyperexpanded lungs) Cardiovascular: RRR, no significant murmur Gastrointestinal: soft, non-tender, positive bowel sounds Musculoskeletal: no edema, pulses present Neurological: moves all 4 limbs Psychiatric: A&O x 3 Deviation from normal: nervous affect Deviation from normal: significant bruising on arms and chest Dx/Plan (1) Acute hypercapnic respiratory failure Code(s): J96.02 - ACUTE RESPIRATORY FAILURE WITH HYPERCAPNIA Status: Acute (2) COPD exacerbation Code(s): J44.1 - CHRONIC OBSTRUCTIVE PULMONARY DISEASE W (ACUTE) EXACERBATION Status: Acute (3) NSTEMI (non-ST elevated myocardial infarction) Code(s): I21.4 - NON-ST ELEVATION (NSTEMI) MYOCARDIAL INFARCTION Status: Acute (4) Tobacco abuse Code(s): Z72.0 - TOBACCO USE Status: Acute (5) Anxiety Code(s): F41.9 - ANXIETY DISORDER, UNSPECIFIED Status: Chronic (6) HTN (hypertension) Code(s): I10 - ESSENTIAL (PRIMARY) HYPERTENSION Status: Chronic (7) Hepatitis C Code(s): B19.20 - UNSPECIFIED VIRAL HEPATITIS C WITHOUT HEPATIC COMA Status: Chronic - Plan Plan: 68 yo F with severe COPD, NSTEMI here for acute hypercapenic resp failure. 1. Acute hypercapneic respiratory failure 2/2 COPD exacerbation/Anxiety: improving * post extubation day 5, nonhypoxic on RA * Duonebs Q4H. on pulmicort, MANUEL mucinex, dulera (refused), prednisone, acapella valve. Pt improved especially with breathing treaments. Pulm recs apprecaited * anxiety large component of respiratory issues, on xanax QID 2. Physical deconditioning * rehab screen, CM consulted * plan for intpt rehab 3. acute COPD exacerbation * no developing infiltrate suggestive of PNA on imaging, no WBC, neg procal-abx not indicated * see above 4. NSTEMI, type 2 * cards on board-medical management with ASA, lisinopril, avoid BB therapy * starting statin, ASCVD risk 25.6% 5. Anxiety * started on xanax QID prn since contributing to respiratory issues * started lexapro * will switch to longer acting benzo 6. Skin excoriations/wounds * wound care consulted 7. HTN, uncontrolled * likely anxiety induced but uncontrolled despite inc. in lisinopril * will add second antihypertensive agent, PRNs to cover 8. Hypothyroidism * subclinical hypoT * resume home synthroid-held for now due to meds causing n/v 9. Hep C * Normal LFTs * HIV/RPR negative * hep c virla panel negative 10. 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 Currently pending placement.
[2019-04-10] MEDS: Mometasone/Formoterol 120 PUFF INHALER INH SCH (06:11)
[2019-04-10] MEDS: Benzonatate 100 MG CAP PO SCH ×2 (08:22→13:47)
[2019-04-10] MEDS: guaiFENesin ER 600 MG TAB PO SCH (08:22)
[2019-04-10] MEDS: Escitalopram Oxalate 10 mg Tablet PO SCH (08:22)
[2019-04-10] MEDS: predniSONE 20 MG TAB PO SCH (08:23)
[2019-04-10] MEDS: Enoxaparin Sodium 40 MG/0.4 ML SYRINGE SC SCH (08:23)
[2019-04-10] MEDS: ALPRAZolam 0.25 MG TAB PO SCH ×2 (08:23→13:47)
[2019-04-10] MEDS ORDERED: Lisinopril 20 MG TAB PO SCH ×2 (09:00)
[2019-04-10] MEDS ORDERED: Polyethylene Glycol 3350 17 GM Packet PO PRN (09:00)
[2019-04-10] MEDS: Budesonide 0.5 MG/2 ML NEB INH SCH (10:03)
[2019-04-10 11:23] VITALS: BP 132/66; TEMP 97.8
--- NOTE | 2019-04-10 12:00 | PRG ---
DATE OF SERVICE: 04/10/2019 Ms. Maldonado was recently admitted with a respiratory arrest secondary to COPD. She is doing much better and will be discharged to a intermediate facility for step-down therapy today. Job ID: [id number]
--- NOTE | 2019-04-10 12:56 | PRG ---
DATE OF SERVICE: 04/10/2019 OBJECTIVE: VITAL SIGNS: Ms. Maldonado is afebrile. Heart rate is 66, respiratory rate is 18, oximetry is 92% on room air, blood pressure is 132/66. LUNGS: Clear. IMPRESSION: 1. Chronic obstructive pulmonary disease exacerbation with respiratory failure requiring intubation. 2. Acute on chronic respiratory failure with hypoxemia and hypercarbia. Her hypoxemia has resolved. I do feel she would benefit from noninvasive ventilation at night to hopefully decrease frequency of hospitalizations and COPD exacerbations as well as her sensation of dyspnea when she wakes up in the morning. Her deconditioning is the biggest issue. We are awaiting placement in the skilled unit. She thinks now that the Lexapro she was taking was creating her nausea. Her blood pressure medications have been adjusted. Job ID: [id number]
[2019-04-10] MEDS: Nicotine 14 MG PATCH TD SCH (13:47)
--- NOTE | 2019-04-11 09:49 | DIS ---
DATE OF ADMISSION: 04/02/2019 DATE OF DISCHARGE: 04/10/2019 ADMITTING ATTENDING: Alexander Moore MD RESIDENT: Bernie Oneil MD, PGY-2 PRIMARY DIAGNOSES: 1. Acute hypercapnic respiratory failure secondary to chronic obstructive pulmonary disease exacerbation and anxiety. 2. Physical deconditioning. 3. Acute chronic obstructive pulmonary disease exacerbation. 4. Severe chronic obstructive pulmonary disease. 5. Type [address]-elevation myocardial infarction. 6. Anxiety. 7. Skin excoriation of the wound. 8. Hypertension. 9. Hypothyroidism. 10. History of hepatitis C. 11. Tobacco use. CONSULTS: Pulmonology, Vicente Michael MD DISCHARGE MEDICATIONS: 1. Protonix 40 mg p.o. daily. 2. Synthroid 75 mcg p.o. daily. 3. Zyrtec 10 mg p.o. daily. 4. Trelegy Ellipta 1 each inhaled daily. 5. Xanax 0.25 mg p.o. q.i.d. p.r.n. for anxiety. 6. Tessalon Perles 100 mg p.o. t.i.d. 7. Pulmicort 0.5 mg inhaled b.i.d. 8. Lexapro 10 mg p.o. daily. 9. Mucinex 1200 mg p.o. q.12 hours. 10. DuoNeb. 11. Lisinopril 20 mg p.o. daily. 12. Dulera 200 mcg/5 mcg inhaler two puffs inhaled b.i.d. 13. Nicotine patch. 14. MiraLAX. 15. Seroquel 25 mg p.o. at bedtime. DISCONTINUED MEDICATIONS: Lisinopril 10 mg p.o. daily. HISTORY OF PRESENT ILLNESS/HOSPITAL COURSE: Ms. Gail Maldonado is a 68-year-old female with severe COPD, presented to the ER after being intubated in the field for respiratory distress. She was admitted for acute hypoxic hypercapnic respiratory failure secondary to her severe COPD. She was successfully extubated after a few days but remained in the hospital a while longer to adjust COPD medications and for SNF placement. I believe a big part of her issues breathing is somewhat triggered by her extreme anxiety. Benzos were started to help with this in addition to an SSRI. Hopefully she can transition to SSRI solely. In addition she had several skin wounds. There could be a underlying skin condition that needs to be worked up outpatient. They are in the healing prcoess. 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 Activity: Ad anette as tolerated and directed by PT 2. Diet: Heart healthy 3. Follow up: Please follow up with Dr. Michael & PCP after discharge from SNF Job ID: [id number] MTDD
== END 2019-04-10 16:48 | DRG 208 ==
LOC: ERS 10:36 → EDBD 10:36 → CCU 14:42 → T4-A 04-07 14:39
PROVIDERS: ADMIT Student in an Organized Health Care Education/Training Program; ATTEND Student in an Organized Health Care Education/Training Program
PROC: 0BH17EZ Insertion of Endotracheal Airway into Trachea, Via Natural or Artificial Opening (ICD-10-PCS; principal; 2019-04-02)
PROC: 5A1945Z Respiratory Ventilation, 24-96 Consecutive Hours (ICD-10-PCS; 2019-04-02)
DX: J96.02 Acute respiratory failure with hypercapnia (principal); I21.A1 Myocardial infarction type 2; I47.1 Supraventricular tachycardia; G45.8 Other transient cerebral ischemic attacks and related syndromes; J43.9 Emphysema, unspecified; J96.01 Acute respiratory failure with hypoxia; Z66 Do not resuscitate; I10 Essential (primary) hypertension; T14.8XXA Other injury of unspecified body region, initial encounter; E03.9 Hypothyroidism, unspecified; F17.200 Nicotine dependence, unspecified, uncomplicated; I73.9 Peripheral vascular disease, unspecified; F41.9 Anxiety disorder, unspecified; Z53.29 Procedure and treatment not carried out because of patient's decision for other reasons; Z88.0 Allergy status to penicillin; Z98.82 Breast implant status; Z79.899 Other long term (current) drug therapy; Z88.2 Allergy status to sulfonamides; Z88.8 Allergy status to other drugs, medicaments and biological substances; Z88.1 Allergy status to other antibiotic agents; Z79.52 Long term (current) use of systemic steroids; B18.2 Chronic viral hepatitis C; I44.7 Left bundle-branch block, unspecified
CPT/HCPCS: 36415; 51702; 71045; 71275; 80048; 80053; 80061; 80306; 80307; 81003; 81015; 82553; 82805; 83605; 83735; 83880; 84145; 84443; 84484; 85025; 86780; 86803; 87040; 87389; 87522; 93005; 93010; 93306; 94002; 94003; 94640; 94667; 94668; 94760; 96365; 96374; J0360; J0692; J1650; J1940; J2060; J2270; J2704; J2920; J2930; J3010; J3475; J3490; J7050; J7512; J7620; J7626; P9045; Q9966; S0028

== ENCOUNTER 2019-05-28 12:03 | Observation (INO) | payer MEDICARE, OTHER ==
[~2019-05-28 12:03] MED LIST: Iopamidol 370 76% 100 ML VIAL ONE
[2019-05-28] MEDS ORDERED: Nitroglycerin 2% Ointment 1 INCH/1 GM Packet ONE (12:48)
[2019-05-28] MEDS ORDERED: methylPREDNISolone Sod Succ/PF 125 MG/2 ML VIAL ONE (12:48)
[2019-05-28 13:01] LABS: #Lymphocytes 0.8 thou/uL (1.20-3.40); #Monocytes 0.2 thou/uL (0.11-0.59); #Neutrophils 9.2 thou/uL (1.40-6.50); %Basophils 0.1 % (0.0-1.0); %Eosinophils 0.1 % (0.0-10.0); %Lymphocytes 7.4 % (21.0-51.0); %Monocytes 2.1 % (0.0-10.0); %Neutrophils 90.3 % (42.0-75.0); Hemoglobin 14.5 g/dL (12.0-16.0); Mean Corpuscular HGB CONC 33.2 g/dL (32.0-36.0); Mean Corpuscular Hemoglobin 33.7 pg (27.0-31.0); Mean Platelet Volume 6.9 fL (7.4-10.4); Platelet Count 412 thou/uL (130-400); RBC Distribution Width 12.9 % (11.5-14.5); Red Blood Cell (RBC) Count 4.31 mill/uL (4.20-5.40); White Blood Cell (WBC) Count 10.2 thou/uL (4.8-10.8)
[2019-05-28] MEDS ORDERED: Albuterol Sulfate 2.5 mg/3 ml Neb ONE (13:11)
[2019-05-28] MEDS ORDERED: Albuterol Sulfate 2.5 mg/0.5 ml Neb ONE (13:11)
--- NOTE | 2019-05-28 13:27 | RAD ---
PORTABLE CHEST ONE VIEW: 05/28/2019 12:16 p.m. HISTORY: Chest pain. COMPARISON: 04/03/2019 FINDINGS: The heart size is normal. A calcified granuloma in the right upper lobe is again seen. There are bila teral calcified breast implants. No lobar consolidation, pneumothoraces or pleural effusions are seen . There are old right-sided rib fractures. IMPRESSION: No acute process. POS: [facility]
[2019-05-28 13:29] LABS: ALT (SGPT) 19 U/L (8-55); AST (SGOT) 18 U/L (5-34); Albumin 4.6 g/dL (3.4-4.8); Alkaline Phosphatase 84 U/L (40-110); Anion Gap 16 mmol/L (10-20); BUN (Urea Nitrogen) 8 mg/dL (9.8-20.1); Bilirubin, Total 0.5 mg/dL (0.2-1.2); Calc. Creatinine Clearance 0 mL/min (70-130); Calcium 9.7 mg/dL (7.8-10.44); Carbon Dioxide 26 mmol/L (23-31); Chloride 101 mmol/L (98-107); Estimated GFR-MDRD 60; Globulin 2.7 g/dL (2.4-3.5); Glucose 207 mg/dL (80-115); Lipase 37 U/L (8-78); Potassium 3.6 mmol/L (3.5-5.1); Protein, Total 7.3 g/dL (6.0-8.3); Sodium 139 mmol/L (136-145)
--- NOTE | 2019-05-28 13:54 | CT ---
EXAM: Brain CTWithout contrast: HISTORY: Dizziness COMPARISON: 07/19/2006 FINDINGS: No focal mass or midline shift. No intra or extra-axial hemorrhage. Sinuses and mastoids are clear of acute process. IMPRESSION: No mass or bleed or other significant acute intracranial process.
[2019-05-28 14:01] LABS: Bilirubin Negative (Negative); Blood, Urine Negative (Negative); Clarity Clear (Clear); Glucose, Urine (Dipstick) Normal (Negative); Leukocyte Negative Leu/uL (Negative); Nitrite Negative (Negative); Protein, Urine (Dipstick) Negative (Neg-Trace); Urobilinogen Normal mg/dL (Less than 2)
--- NOTE | 2019-05-28 14:09 | CT ---
CTA OF THE CHEST AND ABDOMEN UTILIZING AN AORTIC DISSECTION PROTOCOL AND 3-D REFORMATTED IMAGING INDICATION: Chest pain COMPARISON: None FINDINGS: Aorta: No acute aortic stenosis, occlusion or aneurysmal formation demonstrated. 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 The celiac, SMA and renal arteries ap pear patent. There is moderate to severe stenosis involving the proximal left subclavian artery. The right subclavian artery, right common carotid artery, brachiocephalic artery and left common garrido tid artery appear patent along its proximal courses. Central pulmonary artery: No central pulmonary embolus demonstrated. Additional thorax findings: No focal consolidation, pleural effusion or pneumothorax is evident. The previously seen spiculated left upper lobe pulmonary nodule is decreased in size previously measuring 15 mm now measuring 4 mm. The right apical pulmonary nodule measuring 9 mm is stable. Sever e emphysema is stable appearing. Additional abdominal findings: Small hiatal hernia. Left nephrolithiasis. Diffuse fatty liver. No aureliano e fluid or lymphadenopathy. Osseous structures: No acute osseous abnormality. There is scattered degenerative and osteoarthritic change present. IMPRESSION: 1. No appreciable aortic stenosis, occlusion or aneurysmal formation demonstrated. 2. 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 3. 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 4. Stable emphysema 5. Stable right upper lobe pulmonary nodule. Interval decrease in size of the left upper lobe pulmona ry nodule now measuring [address] surveillance is recommended. 6. Left nephrolithiasis. 7. Fatty liver
[2019-05-28] MEDS ORDERED: Acetaminophen 325 MG TAB PO PRN (15:22)
[2019-05-28] MEDS ORDERED: Senokot S 8.6-50 MG TAB PO PRN (15:22)
[2019-05-28] MEDS ORDERED: Sodium Chloride 0.9% 1,000 ML IV SCH (15:30)
[2019-05-28 15:53] LABS: Hemoglobin A1c 5.2 % (4.0-6.0)
[2019-05-28 16:02] VITALS: BMI 18.6
[2019-05-28 16:11] LABS: Troponin I Less than 0.010 ng/mL (< 0.028)
--- NOTE | 2019-05-28 17:15 | HP ---
PRIMARY CARE PHYSICIAN: Dr. Sheffield. CHIEF COMPLAINT: Chest pressure, shortness of breath. HISTORY OF PRESENT ILLNESS: Ms. Maldonado is a 68-year-old female with longstanding history of COPD, emphysema, was admitted in March of this year for respiratory failure, was intubated in the CCU for several days. She was admitted on this last visit 04/02/2019, discharged on 04/10/2019. At that time, she was noted to have NSTEMI. Cardiology was consulted, but told her that when she got over this current illness to come see them as an outpatient as she was not well enough for any interventions at that time. On this visit in the ER, she reports that she has been having some chest pressure since Monday and shortness of breath, dizziness and fatigue. She reports these symptoms are different than her normal COPD, emphysema exacerbations, or previous illness. Remembering what Dr. Royal told her about her cardiac issues on the last hospitalization, she decided to come to the emergency room for further evaluation. She has been on hospice since her last hospitalization, but it was revoked today when she came to the emergency room. She reports that she is a DNR, has an out of hospital DNR, but states that if we mutually agreeable, she would be willing to revoke DNR for any procedures that required this. Past medical history is pertinent for COPD, hypertension, anxiety. She also had an NSTEMI in February 2019. On this ED visit. she was given nitroglycerin sublingual and albuterol neb, Solu-Medrol 125, and inch of nitroglycerin paste. She reports that she feels better. Her EKG here shows normal sinus rhythm, beats per minute 91, ST and T-wave abnormalities biatrial enlargement. CTA of the chest was done which showed bilateral calcified breast implants, No effusions or consolidation is seen. Old right-sided rib fractures. No appreciable aortic stenosis. 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 Tvcomvor-dz-rgzcxt stenosis at the proximal left subclavian artery. Stable emphysema. Stable right upper lobe pulmonary nodule. Interval decrease in size and continued surveillance is recommended. Left nephrolithiasis and fatty liver. Initial troponin on this visit was undetectable. She will be admitted to the observation unit for further management. REVIEW OF SYSTEMS: The patient reports substernal chest pain, shortness of breath, fatigue, cough. Denies radiation of the pain. Reports numbness and tingling in bilateral arms, hands and fingers. Denies diaphoresis. Denies nausea. All systems are reviewed and are negative unless mentioned in the HPI. PAST MEDICAL HISTORY: COPD, hypertension, hypothyroidism, and history of hep C. SOCIAL HISTORY: She is a recent tobacco smoker. She reports that she quit after the last hospitalization. ALLERGIES: BUSPAR, ZOFRAN, PENICILLIN, SULFA, FLAGYL. HOME MEDICATIONS: 1. Protonix 40 mg p.o. daily. 2. Synthroid 75 mcg p.o. daily. 3. Zyrtec 10 mg p.o. daily. 4. Trelegy Ellipta one each inhalation daily. 5. Xanax 0.25 mg p.o. q.i.d. p.r.n. for anxiety. 6. Tessalon [id number] mg p.o. b.i.d. 7. Pulmicort 0.5 mg b.i.d. 8. Lexapro 10 mg p.o. daily. 9. Mucinex 1200 mg p.o. q.12 hours as needed. 10. DuoNeb q.4 hours as needed. 11. Lisinopril 20 mg p.o. daily. 12. Dulera 200 mcg/5 mcg two puffs b.i.d. 13. Seroquel 25 mg p.o. at bedtime. PAST SURGICAL HISTORY: Bilateral breast implants, two kidney stone surgeries. PSYCHIATRIC HISTORY: Anxiety. SOCIAL HISTORY: Lives at home with her own. Smoked two packs of cigarettes for the last 30 years. Quit about 6 weeks ago. Drinks socially. Denies drug use. PHYSICAL EXAMINATION: VITAL SIGNS: Blood pressure 146/70, pulse is 77, respirations are 16, temperature is 98.7, pO2 sats are 96% on room air. CONSTITUTIONAL: The patient is nontoxic. She is oriented to person, place, and time. HEENT: Head is atraumatic and normocephalic. Eyes; eyelids are normal to inspection. Pupils are equally round and reactive to light. ENT, mouth exam is normal. Mucous membranes are moist. NECK: Normal range of motion. Trachea is midline. RESPIRATORY/CHEST: Breath sounds are diminished to bilateral lower lobes. Chest expansion is equal. CARDIOVASCULAR: Regular heart rate and rhythm. Heart sounds are normal. ABDOMEN: Nontender. Bowel sounds are heard. BACK: Normal range of motion. No tenderness. EXTREMITIES: Upper extremity, normal range of motion. Motor strength is normal. Sensation intact. Radial pulse normal. Lower extremity, inspection is normal. Normal range of motion. Motor strength is normal. Pedal pulses are normal. There is no edema noted. NEURO: The patient is oriented to person, place, and time. Cranial nerves 2 through 12 are intact. No focal motor or sensory deficits. SKIN: Warm, dry, normal color. She has multiple healing skin tears to bilateral upper extremities. ASSESSMENT AND PLAN: 1. Chest pain. EKG changes but not from the previous one that we took when she was admitted in March. First troponin here has been undetectable. Based on history and [id number]-deqjlqldl myocardial infarction in March, we will ask Cardiology to consult. The patient did have an echocardiogram done here in March as well , but was a technically difficult study and she had suggestion of diastolic dysfunction, no EF was given. She does report a family history of cardiac disease. We will trend troponins. Keep the patient on the monitor. Gentle hydration normal saline at 75 mL per hour x1 bag to flush out the kidneys from the CTA. 2. History of hypertension. Restart home medications. We will trend. 3. Hyperlipidemia. We will restart home medications. 4. Emphysema, DuoNebs q.4 hours as needed. We will restart her home inhalers. 5. The patient does have some ynagjung-rs-rnfkuz stenosis of the proximal left subclavian artery. The patient will need followup. 6. Deep venous thrombosis and gastrointestinal prophylaxis have been started. Case discussed with Dr. Agarwal who agrees with plan. 7. Hospital course will be dependent on clinical findings. Job ID: [id number] [facility]
[2019-05-28 19:11] LABS: Troponin I 0.025 ng/mL (< 0.028)
[2019-05-28] MEDS: Famotidine 20 MG TAB PO SCH (20:08)
--- NOTE | 2019-05-28 22:07 | CON ---
DATE OF CONSULTATION: 05/28/2019 INDICATION FOR CONSULTATION: A 68-year-old female with a history of severe COPD, tobacco abuse, recently stopped about 2 weeks ago, who presented today after having what she described as having some chest tightness and some numbness and tingling in both arms. She does have a long history of panic attacks and anxiety. Her EKG did not show any significant changes to indicate ischemia, but she did have some T-wave inversions in 1 and aVL, which is unchanged from her previous EKG approximately a month ago. Her enzymes are negative for myocardial infarction. At this time, her discomfort is gone and so is her tingling. PAST MEDICAL HISTORY: Please refer to the notes dictated by my nurse practitioner, Rosetta Rodriguez. SOCIAL HISTORY: Please refer to the notes dictated by my nurse practitioner, Rosetta Rodriguez. FAMILY HISTORY: Please refer to the notes dictated by my nurse practitioner, Rosetta Rodriguez. REVIEW OF SYSTEMS: Please refer to the notes dictated by my nurse practitioner, Rosetta Rodriguez. ALLERGIES: PLEASE REFER TO THE NOTES DICTATED BY MY NURSE PRACTITIONER, ROSETTA RODRIGUEZ. MEDICATIONS: Please refer to the notes dictated by my nurse practitioner, Rosetta Rodriguez. PHYSICAL EXAMINATION: GENERAL: Reveals a very thin elderly female, who is in no acute distress. She does have difficulty breathing, which she says this is her normal. HEENT: Shows the head to be normocephalic and atraumatic. Carotid pulses have bilateral bruits. This may be from the heart area, maybe from subclavian and certainly from the left side subclavian, radiates up into the carotid area. She has decreased pulses in the left arm, but they are present. CARDIOVASCULAR: I cannot hear any significant murmurs, heaves, thrills, bruits, or rubs. ABDOMEN: Soft and flat. There is no tenderness noted. EXTREMITIES: Show no clubbing, cyanosis, or edema. Pedal pulses are present. The right radial pulse is normal. The left radial pulse is decreased. NEUROLOGICAL: She appears to be intact. CHEST: Has decreased breath sounds throughout. I do not hear any rales, rhonchi, or wheezing. LABORATORY DATA: Her EKG shows a normal sinus rhythm with increased voltage in the anterior leads and decreased R-wave progression. She did have some nonspecific changes with T-wave inversions in 1 and aVL, but again this EKG is unchanged from previous EKG that she had on her last admission. IMPRESSION: 1. Probably chronic obstructive pulmonary disease exacerbation with anxiety. Her numbness and tingling have now resolved. 2. Possible underlying coronary artery disease. She underwent stress testing about 10 years ago and said she had a significant reaction too and is not interested in doing another repeat stress test. She may be a candidate too for evaluation by cardiac catheterization if she is agreeable. This will be left up to the discretion of Dr. Royal, when he sees the patient tomorrow. He saw her back in March in the hospital admission at that time, where she has had another chronic obstructive pulmonary disease exacerbation. 3. Her anxiety, which is being dealt with by primary care service also. 4. History of subclavian steal syndrome. This does not appear to be the issue at this time, but she does have also peripheral vascular disease, but she does have pedal pulses, which appeared to be normal. 5. History of hypothyroidism and she will continue her medications. 6. Hypertension. She will also continue on her lisinopril. 7. History of gastroesophageal reflux disease. She will continue also with her medications. According to the record, she was a DNR in the past, but at this time does not appear to be a DNR status. Job ID: [id number]
--- NOTE | 2019-05-28 22:37 | CON ---
DATE OF CONSULTATION: This is JORGE ALBERTO Peraza dictating a report for Karlie De Anda MD. PRIMARY CARE DOCTOR: Dr. Sheffield. PRIMARY PASTE UP COPY CAMERA OPERATOR: Jamil Royal MD. REASON FOR CARDIOLOGY CONSULT: Chest pain, shortness of breath, and history of COPD. HISTORY OF PRESENT ILLNESS: Ms. Maldonado is 68 years old female, with significant history of COPD, severe anxiety, hypertension, history of hep C, and ex-smoker, quit 2 months ago. The patient is DNAR. After the patient was discharged from the hospital in March due to COPD exacerbation, she was doing well per patient; however, she started having dizziness and numbness since Monday morning and the patient's condition is getting worse and due to those reasons the patient decided to present to the emergency department for further evaluation and treatment. She also complained of chest tightness around midsternal area; however, per the patient the patient has the symptom for more than a couple of months. She thinks symptom is secondary to severe COPD and anxiety. She continued having shortness of breath secondary to COPD. She states her shortness of breath has not changed since she was discharged from the hospital in March 2019. She had a stress test done twice, last one was more than 10 years ago at [place]. At that time, the patient was told the patient's result was normal. The patient had echocardiogram done in March 2019 showing normal EF, mild mitral valve regurgitation, mild tricuspid regurgitation. PAST MEDICAL HISTORY: COPD; hypertension; history of hep C which was treated by the medication, the patient cured by now; and history of left subclavian steal at the [facility]. At the time, the patient did not have any other further treatment for the symptoms. PAST SURGICAL HISTORY: The patient had a kidney stone removed x2. FAMILY HISTORY: The patient's father has heart condition. The patient's mother has a history of diabetes. The patient's 2 brother has a history of diabetes. All family except heart disease secondary to myocardial infarction. SOCIAL HISTORY: The patient is . She is living by herself like 2 or 3 minutes from the hospital. She does not have any children. She is an ex-smoker , quit 2 months ago. She used to smoke 1 pack a day. She retired. She has social EtOH use. She denied illicit drug abuse. She does not do exercise. She drinks a cup of coffee in the morning and have a tea and Coke during the day time. ALLERGIES: SHE IS ALLERGIC TO PENICILLIN, BUSPAR, ZOFRAN, SULFA, CODEINE. HOME MEDICATIONS: 1. Levothyroxine 75 mcg per day. 2. Zyrtec 10 mg once a day. 3. Mucinex 600 mg 2 tablets every 12 hours. 4. DuoNeb as needed every 4 hours. 5. Lisinopril 20 mg once a day. REVIEW OF SYSTEMS: 12-point review of systems is negative unless otherwise mentioned in the HPI. PHYSICAL EXAMINATION: VITAL SIGNS: Blood pressure 96/53, temperature 98.0, pulse is 77, respiratory rate 18, O2 saturation 95% on room air. GENERAL: The patient is alert and oriented x4, not in acute distress. However , the patient gets anxious very easily. HEAD: Normocephalic, atraumatic. EYES: Extraocular muscle movement intact. She wears glasses for reading. ENT and MOUTH: Oral and nasal mucosa moist without lesion. NECK: Supple. Normal range of motion. No JVDs. RESPIRATORY: Really diminished at the bases. No wheezing, rales, or rhonchi noted at this moment, but the patient has a dry cough. CARDIOVASCULAR: Regular rate and rhythm. Normal S1, S2. No S3 or S4. No significant murmur, hives, or thrill noted. No edema in the lower extremities. Bilateral upper and lower extremities pulses are present. ABDOMEN: Soft, nontender. No mass to palpitate. Bowel sounds are present. MUSCULOSKELETAL: The patient is able to move all extremities, no difficulty. The patient denied claudication; however, the patient has numbness in the right lower extremities for couple of months. SKIN: Warm and dry. The patient has several bruise from scratch per the patient around bilateral arms, but no lesion or rash noted. NEUROLOGIC: The patient is alert and oriented x4. Nonfocal. PSYCHIATRIC: The patient's mood is appropriate at this moment. LABORATORY DATA: WBC 10.2, hemoglobin 14.5, hematocrit 43.7, platelet 412. Sodium 139, potassium 3.6, BUN 8, creatinine 0.94, hemoglobin A1c is 5.2. AST 18, ALT 19. Troponin is negative. UA is negative. Chest x-ray showed no acute disease process. CT scan shows complete occlusion of CLEMENTINA at its origin of reconstitution of vessel proximally. Oktacnlr-jr-sfmnsb stenosis in proximal left subclavian arteries. Stable emphysema and stable right upper lobe pulmonary nodule. Left nephrolithiasis and fatty liver. Brain CT show no mass or bruit. No significant acute intracranial process. ASSESSMENT: 1. Chest tightness. The patient's troponin level has been negative. 12-lead EKG at the ER shows incomplete left bundle branch block with sinus rhythm. No ST- segment change or T-wave inversion. The patient's vital signs are stable per the patient even though slightly hypotensive. We discussed about the possible stress test; however, the patient would like to decline stress testing at this moment. 2. We would like to continue to monitor patient's condition at this moment with the telemetry and we would like to defer to Dr. Royal for further cardiac evaluation from tomorrow. At this moment, the patient denied any chest tightness at this moment. 3. Chronic obstructive pulmonary disease. The patient is having a cough with deep breath; otherwise, the patient's condition is stable with room air. She is on breathing treatment, which is ordered by the primary care doctor. 4. Hypertension. The patient is mildly hypotensive. The patient received normal saline at 75 mL per hour at this moment. 5. Hypothyroidism. She is on thyroid medicine at home. 6. Hepatitis C. She is recovered from hepatitis C with medication. 7. Ex-smoker, which she quit 2 months ago. We strongly recommend to continue smoking cessation. Thank you very much for Cardiology Service to participate in the care of this patient. We will follow along the patient's care team and then make further recommendations as appropriate. Job ID: [id number] [facility]
[2019-05-29] MEDS ORDERED: Levothyroxine Sodium 75 MCG TAB PO SCH (06:00)
[2019-05-29 06:04] LABS: #Lymphocytes 1.4 thou/uL (1.20-3.40); #Neutrophils 8.6 thou/uL (1.40-6.50); %Basophils 0.4 % (0.0-1.0); %Eosinophils 0.2 % (0.0-10.0); %Lymphocytes 12.6 % (21.0-51.0); %Neutrophils 77.7 % (42.0-75.0); Hemoglobin 12.4 g/dL (12.0-16.0); Mean Corpuscular HGB CONC 32.7 g/dL (32.0-36.0); Mean Corpuscular Hemoglobin 33.5 pg (27.0-31.0); Mean Platelet Volume 6.9 fL (7.4-10.4); Platelet Count 372 thou/uL (130-400); RBC Distribution Width 12.9 % (11.5-14.5)
[2019-05-29 06:33] LABS: Anion Gap 12 mmol/L (10-20); BUN (Urea Nitrogen) 9 mg/dL (9.8-20.1); Calc. Creatinine Clearance 60 mL/min (70-130); Calcium 8.7 mg/dL (7.8-10.44); Carbon Dioxide 22 mmol/L (23-31); Chloride 108 mmol/L (98-107); Estimated GFR-MDRD 85; Glucose 114 mg/dL (80-115); Potassium 4.4 mmol/L (3.5-5.1); Sodium 138 mmol/L (136-145)
--- NOTE | 2019-05-29 08:57 | PRG ---
DATE OF SERVICE: 05/29/2019 HISTORY OF PRESENT ILLNESS: Ms. Maldonado is doing better, appears less shortness of breath. No chest pain or pressure noted. OBJECTIVE: GENERAL: Patient is a pleasant female, who is in no acute distress. The patient does appear older than stated age. VITAL SIGNS: Blood pressure 126/64, pulse 61, temperature NEUROLOGIC: The patient is alert and oriented x3 with no focal neurologic deficits. HEENT: Sclerae without icterus. Mouth has moist mucous membranes with normal pallor. NECK: No JVD. Carotid upstroke brisk. No bruits bilaterally. LUNGS: Coarse breath sounds and distant bilaterally. BACK: No scoliosis or kyphosis. CARDIAC: Regular rate and rhythm with normal S1 and S2. No S3 or S4 noted. No significant rubs, murmurs, thrills, or gallops noted throughout the precordium. PMI is not displaced. There is no parasternal heave. ABDOMEN: Soft, nontender, nondistended. No peritoneal signs present. No hepatosplenomegaly. No abnormal striae. EXTREMITIES: 2+ femoral and 2+ dorsalis pedis pulses. Decreased popliteal pulses noted. No cyanosis, clubbing, or edema. SKIN: No gross abnormalities. PERTINENT LABORATORY DATA: Hemoglobin 12.4, hematocrit 37.9. Troponin negative. Creatinine 0.96. IMPRESSION: 1. Recurrent shortness of breath. 2. Peripheral vascular disease. 3. Subclavian steal syndrome. 4. Chronic obstructive pulmonary disease. 5. Recent cessation of all tobacco products. RECOMMENDATIONS: Discussed several options with Ms. Maldonado. Ms. Maldonado currently has been placed on hospice. She is also DNR. We discussed proceeding with coronary angiography versus medical therapy. The patient is adamant about not having any further intubation and is not interested in rescinding her DNR status. The patient also states she is not able to lie flat. Based on the risks and benefits of proceeding with coronary angiography, she has opted for medical therapy. I would therefore recommend the followin. Plavix 75 q.a.m. 2. Aspirin 81 q.a.m. 3. Atorvastatin 10 mg one p.o. at bedtime. 4. Imdur 15 mg q.a.m. The patient would like to be on lower dosing medications. She states she has had side effect of medication in the past. Since she has opted for medical therapy, we would like to continue hospice care. We would recommend the above. Otherwise, I have no further recommendations. Please re-consult if needed. Job ID: [id number]
[2019-05-29] MEDS ORDERED: Lisinopril 20 MG TAB PO SCH (09:00)
[2019-05-29] MEDS ORDERED: Clopidogrel Bisulfate 75 MG TAB PO SCH (09:00)
[2019-05-29] MEDS ORDERED: guaiFENesin ER 600 MG TAB PO SCH (09:00)
[2019-05-29] MEDS ORDERED: Isosorbide Mononitrate (ER) 30 MG TAB PO SCH (09:00)
[2019-05-29] MEDS ORDERED: Aspirin 81 mg Enteric Coated Tablet PO SCH (09:00)
[2019-05-29] MEDS: Famotidine 20 MG TAB PO SCH (10:14)
[2019-05-29] MEDS: Enoxaparin Sodium 40 MG/0.4 ML SYRINGE SC SCH ×2 (10:15→10:22)
[2019-05-29 11:45] VITALS: BP 150/70; TEMP 97.5
--- NOTE | 2019-05-29 13:25 | PDOC.HOSPP ---
- Subjective Encounter Date: 05/29/19 Encounter Time: 13:23 Subjective: Ms. Maldonado was seen today in follow-up of chest pain. She does not have any new complaints. - Objective Vital Signs & Weight: Vital Signs (12 hours) Temp Pulse Resp BP BP Pulse Ox 05/29/19 12:45 68 15 05/29/19 11:44 97.5 F L 63 18 150/70 H 97 05/29/19 10:14 126/64 05/29/19 08:00 98.3 F 61 18 126/64 98 05/29/19 07:26 72 15 Weight Admit Weight 105 lb Weight 105 lb I&O: 05/28/19 05/29/19 05/30/19 06:59 06:59 06:59 Intake Total 300 Balance 300 Result Diagrams: 05/29/19 05:29 05/29/19 05:29 Hospitalist ROS - Medication Medications: Active Medications Generic Name Dose Route Start Last Admin Trade Name Freq PRN Reason Stop Dose Admin Albuterol/Ipratropium 3 ml 05/28/19 15:27 05/29/19 12:45 Duoneb NEB 3 ml Q4H PRN Administration SOB &/or Wheezing Aspirin 81 mg 05/29/19 09:00 05/29/19 10:14 Ecotrin PO 81 mg DAILY MANUEL Administration Clopidogrel Bisulfate 75 mg 05/29/19 09:00 05/29/19 10:14 Plavix PO 75 mg DAILY MANUEL Administration Enoxaparin Sodium 40 mg 05/29/19 09:00 05/29/19 10:22 Lovenox SC Not Given 0900 [facility] Famotidine 20 mg 05/28/19 21:00 05/29/19 10:14 Pepcid PO 20 mg BID MANUEL Administration Guaifenesin 1,200 mg 05/29/19 09:00 05/29/19 10:14 Mucinex PO 1,200 mg Q12HR MANUEL Administration Isosorbide Mononitrate 15 mg 05/29/19 09:00 05/29/19 10:14 Imdur Er PO 15 mg DAILY MANUEL Administration Levothyroxine Sodium 75 mcg 05/29/19 06:00 05/29/19 05:30 Synthroid PO 75 mcg 0600 MANUEL Administration Lisinopril 20 mg 05/29/19 09:00 05/29/19 10:14 Zestril PO 20 mg DAILY MANUEL Administration - Exam Heart: RRR, no murmur, no gallops, no rubs, normal peripheral pulses Respiratory: CTAB, no wheezes, no rales, no ronchi, normal chest expansion, no tachypnea Gastrointestinal: soft, non-tender, non-distended, normal bowel sounds, no palpable masses, no hepatomegaly, no splenomegaly Extremities: no cyanosis, no clubbing, no edema Hosp A/P (1) Chest pain Code(s): R07.9 - CHEST PAIN, UNSPECIFIED Status: Acute (2) COPD exacerbation Code(s): J44.1 - CHRONIC OBSTRUCTIVE PULMONARY DISEASE W (ACUTE) EXACERBATION Status: Chronic (3) HTN (hypertension) Code(s): I10 - ESSENTIAL (PRIMARY) HYPERTENSION Status: Chronic - Plan * Chest pain and CAD * Cardiology evaluation noted * She has been cleared for discharge
--- NOTE | 2019-05-29 20:37 | DIS ---
DATE OF ADMISSION: 05/28/2019 DATE OF DISCHARGE: 05/29/2019 PRIMARY CARE PHYSICIAN: Tatyana Sheffield MD DISCHARGE DISPOSITION: Home. PRIMARY DISCHARGE DIAGNOSES: 1. Chest pain. 2. Hypertension. 3. Hypothyroidism. 4. Chronic obstructive pulmonary disease. DISCHARGE MEDICATIONS: 1. Lisinopril 20 mg daily. 2. Imdur 15 mg daily. 3. Mucinex 1200 mg b.i.d. as needed. 4. Pepcid 20 mg twice daily. 5. Plavix 75 mg p.o. daily. 6. Lipitor 10 mg q.h.s. 7. Aspirin 81 mg daily. 8. Levothyroxine 75 mcg p.o. daily. 9. Zyrtec 10 mg daily. PROCEDURES DONE DURGING ADMISSION/LABORATORY AND IMAGING DATA: The patient had a CT scan of the brain, which was negative for any intracranial process. The patient had a CT dissection protocol, which was also negative. CODE STATUS: DNAR. ALLERGIES: TO BUSPAR, ZOFRAN, PENICILLIN, FLAGYL. HOSPITAL COURSE: Ms. Maldonado is a pleasant 68-year-old female, who was admitted after having chest pain. She was placed in observation and Cardiology was consulted. The patient was recommended to undergo a stress test, which she refused. Dr. Royal saw her and offered to do a cardiac catheterization, which she also refused. Therefore, she will be treated medically. He recommended that she be discharged on aspirin, Plavix, Lipitor, and Imdur. The patient told me that she does not plan to take the Plavix. She thinks that the medications are too much and she is going to go and get her own second opinion. I did send the prescriptions to the pharmacy however, and explained to her the importance of the medications and their indications and how they acted in their function and hopefully, she will adhere to the medication regimen outlined by Cardiology. She has also been instructed to follow up with her primary care physician in approximately 1 week. Job ID: [id number]
[2019-05-29] MEDS ORDERED: Atorvastatin Calcium 10 MG TAB PO SCH (21:00)
== END 2019-05-29 14:41 | disposition home or self-care (01) ==
LOC: ERS 12:03 → 2SW 14:52
PROVIDERS: ADMIT Internal Medicine; ATTEND Internal Medicine
DX: R07.89 Other chest pain (principal); R06.02 Shortness of breath; I10 Essential (primary) hypertension; E03.9 Hypothyroidism, unspecified; J43.9 Emphysema, unspecified; I25.2 Old myocardial infarction; F41.9 Anxiety disorder, unspecified; I70.8 Atherosclerosis of other arteries; N20.0 Calculus of kidney; R91.1 Solitary pulmonary nodule; K76.0 Fatty (change of) liver, not elsewhere classified; G45.8 Other transient cerebral ischemic attacks and related syndromes; Z66 Do not resuscitate; Z87.891 Personal history of nicotine dependence; Z79.899 Other long term (current) drug therapy; Z88.0 Allergy status to penicillin; Z88.1 Allergy status to other antibiotic agents; Z88.2 Allergy status to sulfonamides; Z88.8 Allergy status to other drugs, medicaments and biological substances
CPT/HCPCS: 70450; 71045; 71275; 72191; 74175; 80048; 80053; 81003; 83036; 83690; 84484 ×2; 85025 ×2; 93005; 94640 ×2; 94644; 94760; 96374; 99285; G0378 ×3; 36415; J1650; J2930; J7611; J7620; Q9967